=== PATIENT | male | born 1960 | race Caucasian/White ===

== ENCOUNTER 2017-03-12 08:43 | Emergency (ER) | payer MEDICARE ==
[2017-03-12] MEDS ORDERED: BABY ASPIRIN 81 MG CHEW PO ONE (09:03)
[2017-03-12] MEDS ORDERED: DUONEB 0.5-3 MG/3 ml Neb IH ONE ×2 (09:05→09:18)
[2017-03-12] MEDS ORDERED: PROTONIX 40 MG IV IV ONE ×2 (09:05→09:20)
--- NOTE | 2017-03-12 09:09 | ERPHSYRPT ---
- History of Present Illness Time Seen by Provider: 03/12/17 09:06 Source: patient Exam Limitations: no limitations Patient Subjective Stated Complaint: Pt states "I coughed really hard the other day and I popped something in my chest and it really hurts" Triage Nursing Assessment: Pt alert and oriented X 3, skin pwd. Pt ambulates with an upright steady gait, able to speak in full sentences. holds his left side when he moves or coughs Physician History: mild to mod pleuritic left chest wall pain ache since Sunday, no fever, hx smoking, hx htn and noncompliant w/ meds, mild shortness of breath, no injury Allergies/Adverse Reactions: No Known Drug Allergies Allergy (Unverified 11/05/13 19:38) Home Medications: Amitriptyline HCl 25 mg [Elavil 25 mg] 50 mg PO HS 11/05/13 [History] Omeprazole [Prilosec] 40 mg PO DAILY 11/05/13 [History] Risperidone [Risperdal] 2 mg PO BID 11/05/13 [History] Venlafaxine HCl ER 75 mg [Effexor XR 75 MG] 150 mg PO DAILY 11/05/13 [ History] Hx Tetanus, Diphtheria Vaccination/Date Given: No Hx Influenza Vaccination/Date Given: No Hx Pneumococcal Vaccination/Date Given: No Immunizations Up to Date: Yes - Review of Systems Constitutional: No Fever Eyes: No Symptoms Ears, Nose, & Throat: No Symptoms Respiratory: Cough, Dyspnea Cardiac: Chest Pain Abdominal/Gastrointestinal: No Symptoms Musculoskeletal: No Symptoms Skin: No Symptoms Neurological: No Symptoms Psychological: No Symptoms - Past Medical History Pertinent Past Medical History: Yes Neurological History: Other ENT History: No Pertinent History Respiratory History: No Pertinent History Endocrine Medical History: No Pertinent History Musculoskeletal History: Other GI Medical History: No Pertinent History Psycho-Social History: Anxiety Other Medical History: dementia,chronic back pain,meningitis - Past Surgical History Past Surgical History: Yes Gastrointestinal: Cholecystectomy, Hernia Repair - Social History Smoking Status: Current every day smoker How long have you smoked: years Exposure to second hand smoke: Yes Drug Use: none Patient Lives Alone: Yes - Nursing Vital Signs Nursing Vital Signs: Initial Vital Signs Temperature 97.4 F 03/12/17 08:50 Pulse Rate 80 03/12/17 08:50 Respiratory Rate 20 03/12/17 08:50 Blood Pressure 130/104 03/12/17 08:50 O2 Sat by Pulse Oximetry 96 03/12/17 08:50 Pain Scale Pain Intensity 2 - Physical Exam General Appearance: no apparent distress Eye Exam: PERRL/EOMI Ears, Nose, Throat Exam: moist mucous membranes Neck Exam: normal inspection Respiratory Exam: lungs clear, other (tender left chest wall), No respiratory distress Cardiovascular Exam: regular rate/rhythm Gastrointestinal/Abdomen Exam: soft, No tenderness Extremity Exam: normal inspection Neurologic Exam: alert, oriented x 3, cooperative Skin Exam: normal color, warm, dry SpO2 Interpretation: normal SpO2: 96 Oxygen Delivery: Room Air - Course Nursing assessment & vital signs reviewed: Yes EKG Interpreted by Me: Other (nsr 76, new rbbb, no stemi) - Radiology Exams Chest X-ray Interpretation: Discussed w/ radiologist, No Fracture, No Pneumonia, No Pneumothorax Ordered Tests: Active Orders 24 hr Category Date Time Status Rental Sales Representative STAT Care 03/12/17 09:03 Active EKG-ER Only STAT Care 03/12/17 09:03 Active IV Insertion STAT Care 03/12/17 09:03 Active Pulse Oximetry (ED) STAT Care 03/12/17 09:03 Active CHEST 2 VIEWS (PA AND LAT) Stat Exams 03/12/17 09:03 Completed CBC W DIFF Stat Lab 03/12/17 09:25 Completed CK-Creatinine Phosphokinase Stat Lab 03/12/17 09:25 Completed CMP Stat Lab 03/12/17 09:25 Completed D-DIMER QUANTITATION Stat Lab 03/12/17 09:25 Completed TROPONIN Q3H Lab 03/12/17 09:25 Completed TROPONIN Q3H Lab 03/12/17 12:15 Ordered TROPONIN Q3H Lab 03/12/17 15:15 Ordered TROPONIN Q3H Lab 03/12/17 18:15 Ordered TROPONIN Q3H Lab 03/12/17 21:15 Ordered Respiratory Nebulizer STAT RT 03/12/17 09:06 Completed Medication Summary Discontinued Medications Generic Name Dose Route Start Last Admin Trade Name Freq PRN Reason Stop Dose Admin Albuterol/Ipratropium 3 ml 03/12/17 09:05 03/12/17 09:20 Duoneb 0.5-3 Mg/3 Ml Neb IH 03/12/17 09:06 3 ml STAT ONE Administration Albuterol/Ipratropium Confirm 03/12/17 09:18 Duoneb 0.5-3 Mg/3 Ml Neb Administered 03/12/17 09:19 Dose 3 ml IH .STK-MED ONE Aspirin 324 mg 03/12/17 09:03 03/12/17 09:30 Baby Aspirin 81 Mg Chew PO 03/12/17 09:04 324 mg STAT ONE Administration Aspirin Confirm 03/12/17 09:20 Baby Aspirin 81 Mg Chew Administered 03/12/17 09:21 Dose 324 mg .ROUTE .STK-MED ONE Hydromorphone HCl 1 mg 03/12/17 09:31 03/12/17 09:37 Hydromorphone 1 Mg/Ml Ampule IV 03/12/17 09:32 1 mg STAT ONE Administration Hydromorphone HCl Confirm 03/12/17 09:35 Hydromorphone 1 Mg/Ml Ampule Administered 03/12/17 09:36 Dose 1 mg .ROUTE .STK-MED ONE Pantoprazole Sodium 40 mg 03/12/17 09:05 03/12/17 09:30 Protonix 40 Mg Iv IV 03/12/17 09:06 40 mg STAT ONE Administration Pantoprazole Sodium Confirm 03/12/17 09:20 Protonix 40 Mg Iv Administered 03/12/17 09:21 Dose 40 mg IV .STK-MED ONE Lab/Rad Data: Laboratory Result Diagrams 03/12/17 09:25 03/12/17 09:25 Laboratory Results 03/12/17 03/12/17 03/12/17 Range/Units 09:25 09:25 09:25 WBC (4.0-10.5) K/mm3 RBC (4.1-5.6) M/mm3 Hgb (12.5-18.0) gm/dl Hct (42-50) % MCV (78-100) fl MCH (26-32) pg MCHC (32-36) g/dl RDW (11.5-14.0) % Plt Count (150-450) K/mm3 MPV (6-9.5) fl Gran % (36.0-66.0) % Lymphocytes % (24.0-44.0) % Monocytes % (0.0-12.0) % Eosinophils % (0.00-5.0) % Basophils % (0.0-0.4) % Basophils # (0-0.4) D-Dimer < 204.26 (0-500) ng/mL Sodium 137 (136-145) mEq/L Potassium 4.2 (3.5-5.1) mEq/L Chloride 99 (98-107) mEq/L Carbon Dioxide 26.2 (21-32) mEq/L Anion Gap 15.8 H (5-15) MEQ/L BUN 22 H (9-20) mg/dL Creatinine 1.37 H (0.55-1.30) mg/dl Estimated GFR 57 ML/MIN Glucose 107 (70-110) MG/DL Calcium 9.9 (8.5-10.1) mg/dL Total Bilirubin 0.50 (0.2-1.0) mg/dL AST 23 (15-37) U/L ALT 29 (12-78) U/L Alkaline Phosphatase 69 (46-116) U/L Creatine Kinase 142 (39-308) U/L Troponin I < 0.017 (0.000-0.056) ng/ml Serum Total Protein 8.2 (6.4-8.2) gm/dL Albumin 4.1 (3.4-5.0) g/dL 03/12/17 Range/Units 09:25 WBC 7.8 (4.0-10.5) K/mm3 RBC 4.74 (4.1-5.6) M/mm3 Hgb 14.5 (12.5-18.0) gm/dl Hct 42.4 (42-50) % MCV 89.5 (78-100) fl MCH 30.6 (26-32) pg MCHC 34.2 (32-36) g/dl RDW 12.9 (11.5-14.0) % Plt Count 205 (150-450) K/mm3 MPV 10.6 H (6-9.5) fl Gran % 75.0 H (36.0-66.0) % Lymphocytes % 14.9 L (24.0-44.0) % Monocytes % 8.0 (0.0-12.0) % Eosinophils % 1.7 (0.00-5.0) % Basophils % 0.4 (0.0-0.4) % Basophils # 0.03 (0-0.4) D-Dimer (0-500) ng/mL Sodium (136-145) mEq/L Potassium (3.5-5.1) mEq/L Chloride (98-107) mEq/L Carbon Dioxide (21-32) mEq/L Anion Gap (5-15) MEQ/L BUN (9-20) mg/dL Creatinine (0.55-1.30) mg/dl Estimated GFR ML/MIN Glucose (70-110) MG/DL Calcium (8.5-10.1) mg/dL Total Bilirubin (0.2-1.0) mg/dL AST (15-37) U/L ALT (12-78) U/L Alkaline Phosphatase (46-116) U/L Creatine Kinase (39-308) U/L Troponin I (0.000-0.056) ng/ml Serum Total Protein (6.4-8.2) gm/dL Albumin (3.4-5.0) g/dL - Progress Progress: improved Air Movement: good Progress Note: 03/12/17 10:43 pt improved norco warnings given return if worse Discussed with : Other (your Dr Graham) Will see patient in: office Counseled pt/family regarding: lab results, diagnosis, need for follow-up, rad results - Departure Time of Disposition: 10:44 Departure Disposition: Home Clinical Impression: Bronchitis Condition: Stable Critical Care Time: No Referrals: ERICA GRAHAM [Primary Care Provider] - Instructions: Rib Fracture Additional Instructions: zpak, medrol, proventil inhaler, norco return if worse see your doctor
[2017-03-12] MEDS ORDERED: BABY ASPIRIN 81 MG CHEW ONE (09:20)
--- NOTE | 2017-03-12 09:30 | XRAY ---
Indication: Left sided chest pain. Comparison: December 31, 2013. PA/lateral chest remains hyperinflated with minimal lingular fibrosis/scarring. No infiltrate, consolidation, or large effusion. Heart is not enlarged. Bony thorax intact. Impression: Stable nonacute hyperinflated chest.
[2017-03-12] MEDS ORDERED: Hydromorphone 1 mg/ml Ampule IV ONE (09:31)
[2017-03-12 09:32] LABS: BASOPHIL % 0.4 % (0.0-0.4); Eosinophil % 1.7 % (0.00-5.0); Lymphocytes % 14.9 % (24.0-44.0); Mean Cell Volume 89.5 fl (78-100); Mean Corpuscular Hemoglobin 30.6 pg (26-32); Mean Platelet Volume 10.6 fl (6-9.5); Platelet Count 205 K/mm3 (150-450); Red Blood Count 4.74 M/mm3 (4.1-5.6); Red Cell Distribution Width 12.9 % (11.5-14.0); White Blood Count 7.8 K/mm3 (4.0-10.5)
[2017-03-12] MEDS ORDERED: Hydromorphone 1 mg/ml Ampule ONE (09:35)
[2017-03-12 10:12] LABS: ALBUMIN 4.1 g/dL (3.4-5.0); ANION GAP 15.8 MEQ/L (5-15); BILIRUBIN,TOTAL 0.5 mg/dL (0.2-1.0); Carbon Dioxide 26.2 mEq/L (21-32); Potassium 4.2 mEq/L (3.5-5.1); Total Protein 8.2 gm/dL (6.4-8.2)
[2017-03-12 11:05] VITALS: BP 132/86; PULSE 72; O2SAT 98
== END 2017-03-12 11:00 | disposition home or self-care (01) ==
LOC: ED 08:43
DX: J40 Bronchitis, not specified as acute or chronic (principal); R07.89 Other chest pain; I10 Essential (primary) hypertension; Z79.899 Other long term (current) drug therapy
CPT/HCPCS: 36000; 36415; 71020; 80053; 82550; 84484; 85025; 85379; 93005; 93041; 94640; 96374; 96375; 99283; 99284; J1170; A9270-GY

== ENCOUNTER 2017-08-06 11:20 | Emergency (ER) | payer MEDICARE ==
--- NOTE | 2017-08-06 12:10 | ERPHSYRPT ---
- History of Present Illness Time Seen by Provider: 08/06/17 12:04 Source: patient Exam Limitations: no limitations Patient Subjective Stated Complaint: pt here for pain to left hand after getting stuck in hand with 2 aicha nails yesterday Triage Nursing Assessment: pt has swelling and redenss to left hand with two scabed over puncture wounds to palm of hand Physician History: The patient is a 57-year-old right-handed male complaining that he punctured his palm of his left hand with 2 nails at work yesterday. He was tearing down some rafters when a board fell and he instinctively put his left hand up. The board had nails in it and struck him on the palm of his left hand. The nail is did not go completely through his hand. He continued to work yesterday. This morning his left hand was swollen and painful. He tried to work today but is unable to grab objects with his left hand because of the pain. He denies fever or chills. His last tetanus vaccination was more than 10 years ago. He denies numbness. His past medical history is significant for hypertension but he quit taking his medicine 2 weeks ago. Occurred: yesterday Method of Injury: other (puncture wound) Quality: aching Severity of Pain-Max: moderate Severity of Pain-Current: moderate Extremities Pain Location: hand: left Modifying Factors: Improves With: nothing Associated Symptoms: none Allergies/Adverse Reactions: No Known Drug Allergies Allergy (Unverified 11/05/13 19:38) Hx Tetanus, Diphtheria Vaccination/Date Given: No Hx Influenza Vaccination/Date Given: No Hx Pneumococcal Vaccination/Date Given: No Immunizations Up to Date: Yes - Review of Systems Constitutional: No Fever, No Chills Eyes: No Symptoms Ears, Nose, & Throat: No Symptoms Respiratory: No Cough, No Dyspnea Cardiac: No Chest Pain, No Edema, No Syncope Abdominal/Gastrointestinal: No Abdominal Pain, No Nausea, No Vomiting, No Diarrhea Genitourinary Symptoms: No Dysuria Musculoskeletal: Injury Skin: Cellulitis Neurological: No Dizziness, No Focal Weakness, No Sensory Changes Psychological: No Symptoms Endocrine: No Symptoms Hematologic/Lymphatic: No Symptoms Immunological/Allergic: No Symptoms All Other Systems: Reviewed and Negative - Past Medical History Pertinent Past Medical History: No Neurological History: Other ENT History: No Pertinent History Respiratory History: No Pertinent History Endocrine Medical History: No Pertinent History Musculoskeletal History: Other GI Medical History: No Pertinent History Psycho-Social History: Anxiety Other Medical History: dementia,chronic back pain,meningitis - Past Surgical History Past Surgical History: Yes Gastrointestinal: Cholecystectomy - Social History Smoking Status: Current every day smoker How long have you smoked: years Exposure to second hand smoke: Yes Drug Use: none Patient Lives Alone: No - Nursing Vital Signs Nursing Vital Signs: Initial Vital Signs Temperature 98.7 F 08/06/17 11:28 Pulse Rate 64 08/06/17 11:28 Respiratory Rate 20 08/06/17 11:28 Blood Pressure 180/100 08/06/17 11:28 O2 Sat by Pulse Oximetry 97 08/06/17 11:28 Pain Scale Pain Intensity 2 - Physical Exam General Appearance: mild distress Eyes, Ears, Nose, Throat Exam: moist mucous membranes Neck Exam: non-tender, supple Cardiovascular/Respiratory Exam: chest non-tender, normal breath sounds, regular rate/rhythm, no respiratory distress Abdominal Exam: non-tender, No guarding Back Exam: normal inspection, No vertebral tenderness Shoulder Exam: normal inspection Elbow/Forearm Exam: normal inspection Wrist Exam: normal inspection Hand Exam: infection, laceration (2 puncture wounds to palm), limited ROM, soft tissue tenderness, swelling Neuro/Tendon Exam: normal sensation, normal motor functions Mental Status Exam: alert, oriented x 3, cooperative Skin Exam: normal color, warm, dry SpO2 Interpretation: normal SpO2: 97 Oxygen Delivery: Room Air - Radiology Exams Left Hand X-ray Interpretation: Interpreted by me, Negative Ordered Tests: Active Orders 24 hr Category Date Time Status HAND (MINIMUM 3 VIEWS) Stat Exams 08/06/17 12:25 Taken Medication Summary Discontinued Medications Generic Name Dose Route Start Last Admin Trade Name Freq PRN Reason Stop Dose Admin Diphtheria/Tetanus/Acell Pertussis 0.5 ml 08/06/17 12:14 08/06/17 12:23 Adacel Vial IM 08/06/17 12:15 0.5 ml .ONCE ONE Administration Diphtheria/Tetanus/Acell Pertussis Confirm 08/06/17 12:17 Adacel Vial Administered 08/06/17 12:18 Dose 0.5 ml IM .STK-MED ONE - Progress Progress: unchanged Counseled pt/family regarding: need for follow-up, rad results - Departure Time of Disposition: 13:17 Departure Disposition: Home Clinical Impression: Cellulitis Condition: Stable Critical Care Time: No Referrals: ERICA SUERO [Primary Care Provider] - Additional Instructions: You have an infection in your left hand as result of getting punctured by nails at work. You were given a tetanus vaccination and Rocephin 1 g IM in the ER. Take Augmentin 875 to times a day for 10 days. Follow-up tomorrow with your regular doctor if your condition has not improved. Prescriptions: Amoxicillin/Potassium Clav [Augmentin 875-125 Tablet] 875 mg PO BID #20 tablet
[2017-08-06] MEDS ORDERED: Adacel Vial IM ONE ×2 (12:14→12:17)
[2017-08-06] MEDS ORDERED: Rocephin 1000 MG INJ IM ONE (13:15)
[2017-08-06 13:19] VITALS: O2SAT 97
[2017-08-06] MEDS ORDERED: XYLOCAINE 1% HCL 20 ML MDV ONE (13:22)
[2017-08-06] MEDS ORDERED: Rocephin 1000 MG INJ ONE (13:22)
[2017-08-06 13:53] VITALS: BP 157/92; PULSE 64
--- NOTE | 2017-08-06 14:03 | XRAY ---
Indication: Puncture wound. Comparison: None 3 views of left hand demonstrates mild 1st metacarpal multangular degenerative changes and small 1st metacarpal head spur. No other bony, articular, or soft tissue abnormalities.
== END 2017-08-06 13:53 | disposition home or self-care (01) ==
LOC: ED 11:20
DX: L03.114 Cellulitis of left upper limb (principal); W45.0XXA Nail entering through skin, initial encounter; Y93.H3 Activity, building and construction
CPT/HCPCS: 73130; 90471; 90715; 96372; 99283; 99284; J0696

== ENCOUNTER 2017-10-03 18:50 | Emergency (ER) | payer MEDICARE ==
[2017-10-03 19:05] VITALS: BP 135/77; PULSE 85; O2SAT 98
[2017-10-03] MEDS ORDERED: TORAdol 30 mg Injection IM ONE (19:19)
[2017-10-03] MEDS ORDERED: TORAdol 30 mg Injection ONE (19:21)
--- NOTE | 2017-10-03 19:25 | ERPHSYRPT ---
- History of Present Illness Time Seen by Provider: 10/03/17 19:15 Source: patient Exam Limitations: no limitations Patient Subjective Stated Complaint: Reaching for something yesterday with his right arm/hand and his shoulder popped. Rates pain 12/17 Triage Nursing Assessment: Pt A&O x3, vitals wnl, pulses normal, no difficulties with strength, reached for something yesterday with right hand and heard something "pop" in his shoulder, shoulder appears to have a lump/bone sticking up at top of shoulder Physician History: 57-year-old white male arrives with complaint of pain in his right superior shoulder symptoms since yesterday. Patient states he was reaching to put something up and cabinet when he felt pain in his right shoulder he has pain in the superior right shoulder worse with movement. Past medical history includes anxiety, chronic back pain, meningitis in the past. Past surgical history includes cholecystectomy. Social history includes alcohol use weekly Occurred: yesterday Method of Injury: other (reaching to put something on a shelf yesterday felt pain in right shoulder) Severity of Pain-Max: moderate Severity of Pain-Current: moderate Extremities Pain Location: shoulder: right Modifying Factors: Improves With: nothing Associated Symptoms: other (pain right shoulder), No back pain, No chills, No chest discomfort, No chest pain, No dyspnea, No fever, No jaw pain, No nausea, No neck pain, No sweating, No short of breath, No vomiting Allergies/Adverse Reactions: No Known Drug Allergies Allergy (Verified 10/03/17 19:03) Hx Tetanus, Diphtheria Vaccination/Date Given: No Hx Influenza Vaccination/Date Given: No Hx Pneumococcal Vaccination/Date Given: No - Review of Systems Constitutional: No Fever, No Chills Eyes: No Symptoms Ears, Nose, & Throat: No Symptoms Respiratory: No Cough, No Dyspnea Cardiac: No Chest Pain, No Edema, No Syncope Abdominal/Gastrointestinal: No Abdominal Pain, No Nausea, No Vomiting, No Diarrhea Genitourinary Symptoms: No Dysuria Musculoskeletal: Other (right shoulder pain) Skin: No Rash Neurological: No Dizziness, No Focal Weakness, No Sensory Changes Psychological: No Symptoms Endocrine: No Symptoms All Other Systems: Reviewed and Negative - Past Medical History Pertinent Past Medical History: No Neurological History: Other ENT History: No Pertinent History Respiratory History: No Pertinent History Endocrine Medical History: No Pertinent History Musculoskeletal History: Other GI Medical History: No Pertinent History Psycho-Social History: Anxiety Other Medical History: dementia,chronic back pain,meningitis - Past Surgical History Past Surgical History: Yes Gastrointestinal: Cholecystectomy - Social History Smoking Status: Current every day smoker How long have you smoked: years Exposure to second hand smoke: Yes Drug Use: none Patient Lives Alone: No - Nursing Vital Signs Nursing Vital Signs: Initial Vital Signs Temperature 98.8 F 10/03/17 18:56 Pulse Rate 85 10/03/17 18:56 Blood Pressure 135/77 10/03/17 18:56 O2 Sat by Pulse Oximetry 98 10/03/17 18:56 Pain Scale Pain Intensity 9 - Physical Exam General Appearance: mild distress Eyes, Ears, Nose, Throat Exam: moist mucous membranes Neck Exam: non-tender, supple Cardiovascular/Respiratory Exam: chest non-tender, normal breath sounds, regular rate/rhythm, no respiratory distress Abdominal Exam: non-tender, No guarding Back Exam: normal inspection, No vertebral tenderness Shoulder Exam: No normal inspection (right shoulder full range of motion , prominence to the AC joint superiorly, mild tenderness with palpation in this area, full range of motion right elbow wrist hand, fingers, radial, ulnar pulses are intact 2/4, good capillary refill all fingers, sensation intact all fingers.) Elbow/Forearm Exam: normal inspection, non-tender, no evidence of injury, normal ROM Wrist Exam: normal inspection, non-tender, no evidence of injury, normal ROM Hand Exam: normal inspection, non-tender, no evidence of injury, normal ROM Neuro/Tendon Exam: normal sensation, normal motor functions Mental Status Exam: alert, oriented x 3, cooperative Skin Exam: normal color, warm, dry SpO2 Interpretation: normal (98%) SpO2: 98 Oxygen Delivery: Room Air - Course Nursing assessment & vital signs reviewed: Yes - Radiology Exams Right Shoulder X-ray Interpretation: Interpreted by me, Other (x-ray right shoulder: Small area of hyper lucency at distal end of right clavicle possible avulsion fracture age undetermined, also area of increased calcification inferior to distal in the right clavicle, widened AC joint space. as compared to November 05, 2013.tthe portion inferior to to the right clavicle ccould represent partial avulsion from acromion ) Ordered Tests: Active Orders 24 hr Category Date Time Status SHOULDER Stat Exams 10/03/17 19:18 Taken Medication Summary Discontinued Medications Generic Name Dose Route Start Last Admin Trade Name Shelley PRN Reason Stop Dose Admin Ketorolac Tromethamine 60 mg 10/03/17 19:19 10/03/17 19:23 Toradol 30 Mg Injection IM 10/03/17 19:20 60 mg STAT ONE Administration Ketorolac Tromethamine Confirm 10/03/17 19:21 Toradol 30 Mg Injection Administered 10/03/17 19:22 Dose 60 mg .ROUTE .STVersartis-MED ONE - Progress Progress: improved Progress Note: 10/03/17 19:28 57-year-old white male with history of chronic back pain anxiety who states she had had meningitis in the past. Arrives with complaint of pain in his right shoulder since yesterday. Patient is moving his right shoulder he does have prominence of the right AC joint, mild tenderness with palpation in the area. Old chart is reviewed patient had been seen in 2013 he had an AC separation at that time. Toradol injection 60 mg IM has been ordered. Will order x-ray right shoulder. 10/03/17 19:46 X-ray of the right shoulder shows widened AC space. There is a small area of hyper lucency at the distal end of the right clavicle which could represent an avulsion fracture age undetermined also there is an area of increased calcification inferior to the distal end of the right clavicle which could represent an avulsion fracture of the clavicle age undetermined. Patient was seen in October 2013 secondary to shoulder pain at that time before meals joint appear to be widened but there was no fractures on x-ray. Patient has minimal edema overlying the area that appears to be more prominent. Question chronic injury with acute small avulsion fracture of the proximal clavicle. Will go ahead and place sling on the patient's right arm have him ice the area patient was given Toradol 60 mg IM. Will have patient take Naprosyn 500 mg twice a day with food as needed for pain. Patient to follow-up with either Dr. Graham, Dr. Mccarthy, or [facility] orthopedics. 10/03/17 19:53 - Departure Time of Disposition: 19:50 Departure Disposition: Home Clinical Impression: avulsion fracture proximal clavicle, possible acromion fx age undetermined Right shoulder pain Qualifiers: Chronicity: acute Qualified Code(s): M25.511 - Pain in right shoulder Condition: Fair Critical Care Time: No Referrals: ERICA GRAHAM [Primary Care Provider] - Additional Instructions: Return home. Use sling right arm. 48-72 hours longer if pain persists. Follow-up with Dr. Graham, Dr. Mccarthy, or [facility] orthopedics. Call tomorrow and arrange appointment. Naprosyn 500 mg orally twice a day with food as needed for pain #20. Return for acute distress or for severe symptoms. No heavy lifting or strenuous use of right arm. Prescriptions: Naproxen 500 mg [Naprosyn 500 MG] 500 mg PO BID #20 tablet
--- NOTE | 2017-10-04 08:43 | XRAY ---
Indication: Right shoulder pain. No known injury. Comparison: November 05, 2013. 3 views of the right shoulder demonstrates new displaced acute comminuted fracture involving the tip of the distal clavicle with AC separation and inferior depression of the acromion. No other bony, articular, or soft tissue abnormalities.
== END 2017-10-03 20:09 | disposition home or self-care (01) ==
LOC: ED 18:50
DX: S42.031A Displaced fracture of lateral end of right clavicle, initial encounter for closed fracture (principal); X50.0XXA Overexertion from strenuous movement or load, initial encounter; M25.511 Pain in right shoulder; M54.9 Dorsalgia, unspecified; G89.29 Other chronic pain; F45.42 Pain disorder with related psychological factors; F41.9 Anxiety disorder, unspecified; Z86.61 Personal history of infections of the central nervous system
CPT/HCPCS: 73030; 96372; 99284; J1885

== ENCOUNTER 2021-03-14 10:16 | Day surgery (SDC) | payer MEDICARE ==
--- NOTE | 2021-03-14 08:54 | HP ---
DATE OF SURGERY: 03/14/2021 HISTORY OF PRESENT ILLNESS: The patient is a 61-year-old having gross bloody stools. Last colonoscopy ten years or so ago. He had a polyp then. There was a question whether he had a positive fecal immunochemical test (FIT) in the past. PAST MEDICAL HISTORY: Hypertension, anxiety, osteoporosis, hepatitis C. PAST SURGICAL HISTORY: Cholecystectomy. Shoulder surgery. Hernia repair by Dr. June in the past. Back problems. MEDICATIONS: Flomax, blood pressure medicine, anxiety medicine. ALLERGIES: NKDA. FAMILY HISTORY: Negative in regards to this problem. SOCIAL HISTORY: One pack per day smoker. Denies alcohol abuse. REVIEW OF SYSTEMS: Fourteen systems reviewed. No chest pain or palpitations. Other systems negative or noncontributory as above and per preadmission questionnaire. PHYSICAL EXAMINATION: GENERAL: No acute distress. HEENT: Sclerae nonicteric. NECK: No JVD. CHEST: Clear to auscultation. CVS: Regular rate and rhythm. ABDOMEN: Soft. No peritoneal signs. EXTREMITIES: No significant edema. NEURO: Alert, oriented, moving extremities symmetrically. RECTAL: Deferred timed to endoscopy exam. PSYCH: Appropriate mood and affect. IMPRESSION: Need for follow up screening colonoscopy. Risks and benefits explained in detail including but not limited to bleeding or infection, risk of bowel injury or perforation possibly requiring open procedure, risk of missed or nondiagnosis or incomplete exam possibly requiring barium enema, other studies or procedures, general risk of anesthesia or sedation, risk of bowel prep, but not limited to, consent obtained. Will proceed with outpatient colonoscopy under MAC anesthesia. There was a question whether he had a positive fecal immunochemical test (FIT) in the past. He is in need of follow up screening colonoscopy, will proceed as an outpatient.
[2021-03-14] MEDS ORDERED: Lactated Ringers 1,000 ML IV ONE ×2 (10:55→13:22)
[2021-03-14] MEDS ORDERED: Lactated Ringers 1,000 ML IV SCH (11:00)
[2021-03-14] MEDS ORDERED: DIPRIVAN 200 MG/20 ML IV ONE ×2 (12:59→13:10)
[2021-03-14 14:41] VITALS: BP 132/82; PULSE 67; O2SAT 97
--- NOTE | 2021-03-15 10:02 | OP ---
SURGERY DATE/TIME: 03/14/2021 1303 PREOPERATIVE DIAGNOSIS: Need for screening colonoscopy, prior history of polyps. POSTOPERATIVE DIAGNOSES: 1) ASA Class III. 2) Colon polyps. 3) Fair but limited bowel prep. 4) Diverticulosis. 5) Withdrawal time approximately 9 minutes. 6) Photo documented appendiceal orifice and ileocecal valve area. PROCEDURES: 1) Colonoscopy to cecum. 2) Hot biopsy followed by removal hot snare polypectomy of transverse colon polyp. 3) Hot snare polypectomy small rectal polyp. SURGEON: Dr. Moy Lozano. SECOND MATE: Zack Jackson, Medical Student III. ANESTHESIA: MAC. ESTIMATED BLOOD LOSS: Minimal. INDICATIONS: As noted above. Risks and benefits explained in detail but not limited to and consent obtained. DESCRIPTION OF PROCEDURE AND FINDINGS: The patient is taken to the endoscopy room. MAC anesthesia induced. After official time out and no disagreement with planned procedure, digital rectal exam did not reveal any rectal masses. Video colonoscope inserted and passed up through the tortuous sigmoid, descending, transverse and ascending colon. With the external pressure the scope was able to be passed around to the cecum. Appendiceal orifice and valve well visualized. Prep is on the fair side a little limited with liquidy semisolid stool limiting the exam for small lesions this is suctioned irrigated out as clear as possible. The scope is slowly and carefully withdrawn over the next 9 minutes. Stopping in the transverse colon. There is a 3.5 mm polyp or so, difficult to see with the amount of liquidy stool. It was suctioned irrigated as clear as possible despite the patient's peristalsis and moving target. It was finally able to be biopsied with hot biopsy forceps and was able to get a snare on it and appeared to be removed with the hot snare completely. Good hemostasis appeared to be noted. The staff said it was retrieved. The scope was then carefully pulled through the left colon and had a few small diverticula. Back in the rectum, there was another 3 to 3.5 mm polyp removed with hot snare polypectomy this appeared to be adenomatous in nature. It was carefully removed with hot snare polypectomy with brief bursts of cautery. Good hemostasis noted. Otherwise there were no signs of any other large polyps, masses or obstructing lesions. The patient tolerated the procedure well. He did not have any family to discuss the findings with out in the waiting area. I will see him back in the office next week.
== END 2021-03-14 14:30 | disposition home or self-care (01) ==
LOC: SDC 10:16
PROVIDERS: ATTEND Surgery
DX: Z12.11 Encounter for screening for malignant neoplasm of colon (principal); Z09 Encounter for follow-up examination after completed treatment for conditions other than malignant neoplasm; Z85.038 Personal history of other malignant neoplasm of large intestine; K57.30 Diverticulosis of large intestine without perforation or abscess without bleeding; Z79.899 Other long term (current) drug therapy; D12.3 Benign neoplasm of transverse colon; D12.8 Benign neoplasm of rectum
CPT/HCPCS: 88305; J2704

== ENCOUNTER 2021-04-22 23:38 | Emergency (ER) | payer MEDICARE ==
[2021-04-23] MEDS ORDERED: XYLOCAINE 1% HCL 20 ML MDV ONE (00:12)
--- NOTE | 2021-04-23 00:12 | ERPHSYRPT ---
- History of Present Illness Time Seen by Provider: 04/23/21 00:11 Source: patient Exam Limitations: no limitations Physician History: UTI symptoms for a day or two. Some dysuria, right testicle area with pain and swelling. No d/c. He had a recent cystoscopy by urologist for ? bladder cancer. Timing/Duration: today Activites at Onset: none Quality: aching, pressure Onset Location: right testicle Pain Radiation: none Severity of Pain-Max: moderate Severity of Pain-Current: moderate Modifying Factors: Improves With: nothing Associated Symptoms: dysuria, No fever Prior abdominal problems: other (recent cystoscopy) Sexual intercourse history: non-contributory Allergies/Adverse Reactions: No Known Drug Allergies Allergy (Verified 03/10/21 15:49) Home Medications: Amlodipine Besylate 5 mg [Norvasc 5 mg] 5 mg PO DAILY 03/11/21 [History] Donepezil HCl 10 mg [Aricept 10 MG] 10 mg PO DAILY 03/11/21 [History] Tamsulosin HCl 0.4 mg [Flomax 0.4 MG] 0.4 mg PO DAILY 03/11/21 [History] Venlafaxine HCl [Venlafaxine HCl ER] 150 mg PO DAILY 03/11/21 [History] Hx Tetanus, Diphtheria Vaccination/Date Given: No Hx Influenza Vaccination/Date Given: No Hx Pneumococcal Vaccination/Date Given: No - Past Medical History Pertinent Past Medical History: Yes Neurological History: Dementia ENT History: No Pertinent History Cardiac History: Hypertension Respiratory History: COPD, Other Endocrine Medical History: No Pertinent History Musculoskeletal History: Osteoarthritis GI Medical History: No Pertinent History History: Bladder Cancer (not certain), Other Psycho-Social History: Anxiety Male Reproductive Disorders: Other Other Medical History: smoker, he has an inhaler and breathing machine. daughter states there is a tumor in his bladder pt states they are unsure if he has a tumor in his bladder. blockage in the bladder. pt reports he was treated for hepatitis years ago type unknown - Past Surgical History Past Surgical History: Yes Neuro Surgical History: No Pertinent History Cardiac: No Pertinent History Respiratory: No Pertinent History Gastrointestinal: Cholecystectomy, Hernia Repair Genitourinary: No Pertinent History Musculoskeletal: Other Male Surgical History: No Pertinent History Other Surgical History: shoulder surgery - Social History Smoking Status: Current every day smoker How long have you smoked: 30 years Exposure to second hand smoke: No Drug Use: none Patient Lives Alone: No Significant Family History: no pertinent family hx - Review of Systems Constitutional: No Symptoms Eyes: No Symptoms Ears, Nose, & Throat: No Symptoms Respiratory: No Symptoms Cardiac: No Symptoms Abdominal/Gastrointestinal: No Symptoms Genitourinary Symptoms: Dysuria, Testicle Pain Musculoskeletal: No Symptoms Skin: No Symptoms Neurological: No Symptoms Psychological: No Symptoms Endocrine: No Symptoms Hematologic/Lymphatic: No Symptoms Immunological/Allergic: No Symptoms All Other Systems: Reviewed and Negative - Nursing Vital Signs Nursing Vital Signs: Initial Vital Signs Temperature 98.3 F 04/23/21 00:01 Pulse Rate 70 04/23/21 00:01 Respiratory Rate 15 04/23/21 00:01 Blood Pressure 106/65 04/23/21 00:01 O2 Sat by Pulse Oximetry 98 04/23/21 00:01 Pain Scale Pain Intensity 8 - Physical Exam General Appearance: mild distress Eye Exam: PERRL/EOMI, EOM palsy/anisocoria Neck Exam: normal inspection Respiratory Exam: normal breath sounds Cardiovascular Exam: regular rate/rhythm Gastrointestinal/Abdomen Exam: soft, normal bowel sounds Rectal Exam: deferred Male Genital Exam: epididymal tenderness (right), testicular tenderness (R) (generalized TTP, not c/w torsion) Back Exam: normal inspection Extremity Exam: normal inspection Neurologic Exam: alert, oriented x 3 Skin Exam: normal color - Course Nursing assessment & vital signs reviewed: Yes Ordered Tests: Active Orders 24 hr Category Date Time Status CULTURE,URINE Stat Lab 04/23/21 00:44 Received UA W/RFX UR CULTURE Stat Lab 04/23/21 00:44 Completed Medication Summary Discontinued Medications Generic Name Dose Route Start Last Admin Trade Name Shelley PRN Reason Stop Dose Admin Hydrocodone Bitart/Acetaminophen 1 tablet 04/23/21 00:28 04/23/21 00:36 Hydrocodone/Acetamin 10-325 Mg Tablet PO 04/23/21 00:29 1 tablet ONCE ONE Administration Ceftriaxone Sodium 1,000 mg 04/23/21 00:24 04/23/21 00:36 Ceftriaxone Sodium 1000 Mg Inj Vial IM 04/23/21 00:25 1,000 mg STAT ONE Administration Ceftriaxone Sodium Confirm 04/23/21 00:31 Ceftriaxone Sodium 1000 Mg Inj Vial Administered 04/23/21 00:32 Dose 1,000 mg .ROUTE .STK-MED ONE Lidocaine HCl Confirm 04/23/21 00:12 Lidocaine Hcl 1% 20 Ml Mdv 20 Ml Ml Administered 04/23/21 00:13 Dose 5 ml .ROUTE .STK-MED ONE Lab/Rad Data: Laboratory Results 04/23/21 Range/Units 00:44 Urine Color HUMZA (YELLOW) Urine Appearance CLOUDY (CLEAR) Urine pH 5.0 (5-6) Ur Specific [place] 1.024 (1.005-1.025) Urine Protein 100 (Negative) Urine Ketones TRACE (NEGATIVE) Urine Blood SMALL (0-5) Tarik/ul Urine Nitrite NEGATIVE (NEGATIVE) Urine Bilirubin NEGATIVE (NEGATIVE) Urine Urobilinogen 2 (0-1) mg/dL Ur Leukocyte Esterase LARGE (NEGATIVE) Urine WBC (Auto) >100 (0-5) /HPF Urine RBC (Auto) 26-50 (0-2) /HPF U Hyaline Cast (Auto) 26-50 (0-2) /LPF U Epithel Cells (Auto) NONE (FEW) /HPF Urine Bacteria (Auto) FEW (NEGATIVE) /HPF Calcium Oxalate Crystal 3-5 (NEGATIVE) /HPF Urine Mucus (Auto) SLIGHT (NEGATIVE) /HPF Urine Culture Reflexed YES (NO) Urine Glucose NEGATIVE (NEGATIVE) mg/dL - Progress Progress: improved Progress Note: 04/23/21 05:49 UTI with extension into right testicular area. No abscess. Rx abx and see urologist SUSANNE. Counseled pt/family regarding: lab results, diagnosis, need for follow-up - Departure Departure Disposition: Home Clinical Impression: Orchitis and epididymitis Condition: Stable Critical Care Time: No Referrals: STARR FELICIANO [Primary Care Provider] - Follow up/PCP as directed Instructions: Epididymitis (DC) Additional Instructions: Take the antibiotic. Drink lots of water. Call your urologist Sunday to arrange an appt. to check the infection. Prescriptions: Hydrocodone/Acetaminophen [Hydrocodone-Acetamin 5-325 mg] 1 tab PO Q6HPRN PRN 3 Days #12 tablet MDD 4 PRN Reason: Pain Levofloxacin [Levofloxacin 500 MG Tablet] 500 mg PO QAM #10 tablet
[2021-04-23] MEDS ORDERED: Rocephin 1000 MG INJ IM ONE (00:24)
[2021-04-23] MEDS ORDERED: HYDROCODONE-ACETAMIN 10-325 MG PO ONE (00:28)
[2021-04-23] MEDS ORDERED: Rocephin 1000 MG INJ ONE (00:31)
[2021-04-23 01:01] LABS: Appearance CLOUDY (CLEAR); Bacteria FEW /HPF (NEGATIVE); Bilirubin NEGATIVE (NEGATIVE); Blood SMALL Ery/ul (0-5); Glucose NEGATIVE (NEGATIVE); Hyaline Casts 26-50 /LPF (0-2); Ketones TRACE (NEGATIVE); Leukocyte Esterase LARGE (NEGATIVE); Mucus SLIGHT /HPF (NEGATIVE); Nitrite NEGATIVE (NEGATIVE); Protein,Urine Dip 100 (Negative); RBC 26-50 /HPF (0-2); Specific Gravity 1.024 (1.005-1.025); Urobilinogen 2 mg/dL (0-1); WBC >100 /HPF (0-5)
[2021-04-23 02:15] VITALS: BP 125/58; O2SAT 97
[2021-04-23 02:16] VITALS: PULSE 72
== END 2021-04-23 02:17 | disposition home or self-care (01) ==
LOC: ED 23:38
DX: N45.3 Epididymo-orchitis (principal); R30.0 Dysuria; I10 Essential (primary) hypertension; F03.90 Unspecified dementia, unspecified severity, without behavioral disturbance, psychotic disturbance, mood disturbance, and anxiety; J44.9 Chronic obstructive pulmonary disease, unspecified; Z72.0 Tobacco use; Z79.891 Long term (current) use of opiate analgesic; Z79.899 Other long term (current) drug therapy
CPT/HCPCS: 81001; 87077; 87086; 87186; 96372; 99284; J0696; A9270-GY

== ENCOUNTER 2022-03-02 16:53 | Emergency (ER) | payer MEDICARE ==
[2022-03-02] MEDS ORDERED: Sodium Chloride 0.9% 1000 ML 1,000 ML IV SCH (17:00)
[2022-03-02] MEDS ORDERED: Magnesium Sulfate 1 GM/2 ML VIAL ONE (17:05)
[2022-03-02 17:10] LABS: Absolute Neutrophil Ct (ANC) 8.59 x10^3/uL (1.4-6.9); Basophil (Absolute #) 0.03 x10^3/uL (0-0.4); Eosinophil % 0.1 % (0.00-5.0); Eosinophil (Absolute #) 0.01 x10^3/uL (0-0.5); Hematocrit 43.2 % (42-50); Hemoglobin 13.6 g/dL (12.5-18.0); Lymphocyte (Absolute #) 0.61 x10^3/uL (1.0-4.6); Lymphocytes % 6.2 % (24.0-44.0); Mean Cell Volume 94.1 fL (78-100); Mean Corpuscular Hemoglobin 29.6 pg (26-32); Mean Corpuscular Hgb Concent. 31.5 g/dL (32-36); Mean Platelet Volume 11.1 fL (7.5-11.0); Monocyte (Absolute #) 0.54 x10^3/uL (0.0-1.3); Monocytes % 5.5 % (0.0-12.0); Neutrophil % 87.6 % (36.0-66.0); Platelet Count 205 x10^3/uL (150-450); Red Blood Count 4.59 x10^6/uL (4.1-5.6); Red Cell Distribution Width 14.1 % (11.5-14.0); White Blood Count 9.8 x10^3/uL (4.0-10.5)
[2022-03-02] MEDS ORDERED: ATROPINE SULFATE 1MG SYR ABBOJECT ONE (17:14)
[2022-03-02] MEDS ORDERED: SUBLIMAZE 100 MCG/2 ML ONE ×2 (17:14→17:24)
[2022-03-02] MEDS ORDERED: Zofran 4 MG/2 ML VIAL ONE (17:14)
[2022-03-02] MEDS ORDERED: Sodium Chloride 0.9% 1000 ML 1,000 ML ONE (17:16)
[2022-03-02 17:30] VITALS: BP 94/40; PULSE 26; O2SAT 93
[2022-03-02] MEDS ORDERED: Dopamine 400 MG/D5W 250ML PREMIX 250 ML IV ONE (17:37)
[2022-03-02 17:44] LABS: ALBUMIN 4.2 g/dL (3.5-5.0); ALKALINE PHOSPHATASE 78 U/L (38-126); ANION GAP 12.5 MEQ/L (5-15); BLOOD UREA NITROGEN 24 mg/dL (9-20); CHLORIDE 103 mmol/L (98-107); CK-Creatinine Phosphokinase 76 U/L (55-170); Calcium 8.7 mg/dL (8.4-10.2); Carbon Dioxide 29 mmol/L (22-30); Creatinine 1 1.32 mg/dL (0.66-1.25); EST GLOMERULAR FILTRATION RATE 58.2 ML/MIN; Glucose 81 mg/dL (74-106); NT PRO BNP 186 pg/mL (0-900); Potassium 4.8 mmol/L (3.5-5.1); SGOT/AST 34 U/L (17-59); SGPT/ALT 27 U/L (0-50); SODIUM 139 mmol/L (137-145); TROPONIN < 0.012 ng/mL (0.000-0.034); Total Protein 7.4 g/dL (6.3-8.2)
--- NOTE | 2022-03-02 17:57 | ERPHSYRPT ---
- History of Present Illness Time Seen by Provider: 03/02/22 16:55 Source: patient, family Exam Limitations: clinical condition Patient Subjective Stated Complaint: Syncope Triage Nursing Assessment: Patient brought into ED per w/c and transferred to bed with assist of 1. Patient states he woke up around 1230 and has been "passing" out all day. Patient has two abrasions to forehead from a fall last night. Patient's girlfriend states he has been having several syncopal episodes today. Patient will state "Oh no I feel it" and his heart rate will drop. Patient denies pain or discomfort. Physician History: 62 years old male with history of hypertension, anxiety presented in the ER with chief complaint of multiple syncopal episodes. Patient reports he keeps passing out off and on since he woke up around 1230. Complaining of mild chest discomfort and it comes in a wave that goes down and he passes out and no sei zure-like activity. Patient is not confused or altered immediately afterwards. Patient reports he had similar episodes almost 2 years ago and was thoroughly worked up which was negative and got better until 2 weeks ago and since then having multiple episodes again. He fell few days ago and today prior to arrival he was sitting on a chair and passed out. He has abrasion on the forehead which he fell few days ago. Moving all 4 extremities and no focal numbness tingling or weakness. Timing/Duration: hour(s) (5), intermittent, worse Severity: moderate Associated Symptoms: chest pain, syncope, weakness Allergies/Adverse Reactions: No Known Drug Allergies Allergy (Verified 03/02/22 16:59) Home Medications: Amlodipine Besylate 5 mg [Norvasc 5 mg] 5 mg PO DAILY 03/11/21 [History] Donepezil HCl 10 mg [Aricept 10 MG] 10 mg PO DAILY 03/11/21 [History] Tamsulosin HCl 0.4 mg [Flomax 0.4 MG] 0.4 mg PO DAILY 03/11/21 [History] Venlafaxine HCl [Venlafaxine HCl ER] 150 mg PO DAILY 03/11/21 [History] Hx Tetanus, Diphtheria Vaccination/Date Given: No Hx Influenza Vaccination/Date Given: No Hx Pneumococcal Vaccination/Date Given: No Immunizations Up to Date: Yes Travel Risk - International Travel Have you traveled outside of the country in past 3 weeks: No - Coronavirus Screening Are you exhibiting any of the following symptoms?: No Close contact with a COVID-19 positive Pt in past 14-21 Days: No - Vaccine Status Have you recieved a Covid-19 vaccination: No - Review of Systems Neurological: Dizziness All Other Systems: Unable due to condition - Past Medical History Pertinent Past Medical History: Yes Neurological History: Dementia ENT History: No Pertinent History Cardiac History: Hypertension Respiratory History: COPD, Other Endocrine Medical History: No Pertinent History Musculoskeletal History: Osteoarthritis GI Medical History: No Pertinent History History: Bladder Cancer, Other Psycho-Social History: Anxiety Male Reproductive Disorders: Other Other Medical History: smoker, he has an inhaler and breathing machine. daughter states there is a tumor in his bladder pt states they are unsure if he has a tumor in his bladder. blockage in the bladder. pt reports he was treated for hepatitis years ago type unknown. kidney cancer - Past Surgical History Past Surgical History: Yes Neuro Surgical History: No Pertinent History Cardiac: No Pertinent History Respiratory: No Pertinent History Gastrointestinal: Cholecystectomy, Hernia Repair Genitourinary: No Pertinent History Musculoskeletal: Other Male Surgical History: No Pertinent History Other Surgical History: shoulder surgery - Social History Smoking Status: Current every day smoker How long have you smoked: 30 years Exposure to second hand smoke: No Drug Use: marijuana Patient Lives Alone: No Significant Family History: no pertinent family hx - Nursing Vital Signs Nursing Vital Signs: Initial Vital Signs Temperature 98.4 F 03/02/22 17:00 Pulse Rate 44 L 03/02/22 17:00 Respiratory Rate 20 03/02/22 17:00 Blood Pressure 137/66 03/02/22 17:00 O2 Sat by Pulse Oximetry 100 03/02/22 17:00 Pain Scale Pain Intensity 0 - Physical Exam General Appearance: mild distress, alert Eye Exam: PERRL/EOMI Ears, Nose, Throat Exam: normal ENT inspection, TMs normal, pharynx normal, other (Forehead abrasions) Neck Exam: normal inspection, non-tender, supple, full range of motion Respiratory Exam: normal breath sounds, lungs clear Cardiovascular Exam: normal heart sounds, bradycardia Gastrointestinal/Abdomen Exam: soft, normal bowel sounds, No tenderness Back Exam: normal inspection Extremity Exam: normal inspection Neurologic Exam: alert, oriented x 3, cooperative, alteration hand II-XII nml as tested Skin Exam: normal color SpO2 Interpretation: normal SpO2: 93 O2 Delivery: Room Air Ordered Tests: Active Orders 24 hr Category Date Time Status CERVICAL SPINE WO CONTRAST [CT] Stat Exams 03/02/22 17:01 Ordered CHEST 1 VIEW (PORTABLE) Stat Exams 03/02/22 17:00 Ordered HEAD WITHOUT CONTRAST [CT] Stat Exams 03/02/22 17:01 Ordered CBC W DIFF Stat Lab 03/02/22 17:00 Completed CK-Creatinine Phosphokinase Stat Lab 03/02/22 17:00 Received CMP Stat Lab 03/02/22 17:00 Received NT PRO BNP Stat Lab 03/02/22 17:00 Received POCT GLUCOSE Stat Lab 03/02/22 17:08 Completed TROPONIN Q4H Lab 03/02/22 17:00 Received TROPONIN Q4H Lab 03/02/22 17:00 Received TROPONIN Q4H Lab 03/03/22 01:00 Ordered Urine Triage Profile Stat Lab 03/02/22 17:00 Ordered Medication Summary Generic Name Dose Route Start Last Admin Trade Name Fremicki PRN Reason Stop Dose Admin Sodium Chloride 1,000 mls @ 100 mls/hr 03/02/22 17:00 Sodium Chloride 0.9% 1000 Ml IV 04/01/22 16:59 .Q10H MARIAM Discontinued Medications Generic Name Dose Route Start Last Admin Trade Name Fremicki PRN Reason Stop Dose Admin Atropine Sulfate Confirm 03/02/22 17:14 Atropine Sulfate 1 Mg/10 Ml Abboject Administered 03/02/22 17:15 Dose 2 mg .ROUTE .STK-MED ONE Fentanyl Citrate Confirm 03/02/22 17:14 Fentanyl Citrate 100 Mcg/2 Ml* Vial Administered 03/02/22 17:15 Dose 100 mcg .ROUTE .STK-MED ONE Fentanyl Citrate Confirm 03/02/22 17:24 Fentanyl Citrate 100 Mcg/2 Ml* Vial Administered 03/02/22 17:25 Dose 100 mcg .ROUTE .STK-MED ONE Dopamine HCl/Dextrose Confirm 03/02/22 17:37 Dopamine 400 Mg/D5w 250ml Premix Administered 03/02/22 17:38 Dose 250 mls @ ud IV .STK-MED ONE Magnesium Sulfate Confirm 03/02/22 17:05 Magnesium Sulfate Injection Administered 03/02/22 17:06 Dose 1 gm .ROUTE .STK-MED ONE Ondansetron HCl Confirm 03/02/22 17:14 Ondansetron Hcl 4 Mg/2 Ml Vial Administered 03/02/22 17:15 Dose 4 mg .ROUTE .[facility] ONE Lab/Rad Data: Laboratory Result Diagrams 03/02/22 17:00 03/02/22 17:00 Laboratory Results 03/02/22 03/02/22 03/02/22 Range/Units 17:08 17:00 17:00 WBC (4.0-10.5) x10^3/uL RBC (4.1-5.6) x10^6/uL Hgb (12.5-18.0) g/dL Hct (42-50) % MCV (78-100) fL MCH (26-32) pg MCHC (32-36) g/dL RDW (11.5-14.0) % Plt Count (150-450) x10^3/uL MPV (7.5-11.0) fL Gran % (36.0-66.0) % Immature Gran % (Auto) (0.00-0.4) % Nucleat RBC Rel Count (0.00-0.1) % Eos # (Auto) (0-0.5) x10^3/uL Immature Gran # (Auto) (0.00-0.03) x10^3u/L Absolute Lymphs (auto) (1.0-4.6) x10^3/uL Absolute Monos (auto) (0.0-1.3) x10^3/uL Absolute Nucleated RBC (0.00-0.01) x10^3u/L Lymphocytes % (24.0-44.0) % Monocytes % (0.0-12.0) % Eosinophils % (0.00-5.0) % Basophils % (0.0-0.4) % Absolute Granulocytes (1.4-6.9) x10^3/uL Basophils # (0-0.4) x10^3/uL Sodium 139 (137-145) mmol/L Potassium 4.8 (3.5-5.1) mmol/L Chloride 103 (98-107) mmol/L Carbon Dioxide 29 (22-30) mmol/L Anion Gap 12.5 (5-15) MEQ/L BUN 24 H (9-20) mg/dL Creatinine 1.32 H (0.66-1.25) mg/dL Estimated GFR 58.2 ML/MIN Glucose 81 (74-106) mg/dL POC Glucometer 101 (74 to 106) mg/dL Calcium 8.7 (8.4-10.2) mg/dL Total Bilirubin 0.30 (0.2-1.3) mg/dL AST 34 (17-59) U/L ALT 27 (0-50) U/L Alkaline Phosphatase 78 (38-126) U/L Creatine Kinase 76 (55-170) U/L Troponin I < 0.012 < 0.012 (0.000-0.034) ng/mL NT-Pro-B Natriuret Pep 186 (0-900) pg/mL Serum Total Protein 7.4 (6.3-8.2) g/dL Albumin 4.2 (3.5-5.0) g/dL 03/02/22 Range/Units 17:00 WBC 9.8 (4.0-10.5) x10^3/uL RBC 4.59 (4.1-5.6) x10^6/uL Hgb 13.6 (12.5-18.0) g/dL Hct 43.2 (42-50) % MCV 94.1 (78-100) fL MCH 29.6 (26-32) pg MCHC 31.5 L (32-36) g/dL RDW 14.1 H (11.5-14.0) % Plt Count 205 (150-450) x10^3/uL MPV 11.1 H (7.5-11.0) fL Gran % 87.6 H (36.0-66.0) % Immature Gran % (Auto) 0.3 (0.00-0.4) % Nucleat RBC Rel Count 0.0 (0.00-0.1) % Eos # (Auto) 0.01 (0-0.5) x10^3/uL Immature Gran # (Auto) 0.03 (0.00-0.03) x10^3u/L Absolute Lymphs (auto) 0.61 L (1.0-4.6) x10^3/uL Absolute Monos (auto) 0.54 (0.0-1.3) x10^3/uL Absolute Nucleated RBC 0.00 (0.00-0.01) x10^3u/L Lymphocytes % 6.2 L (24.0-44.0) % Monocytes % 5.5 (0.0-12.0) % Eosinophils % 0.1 (0.00-5.0) % Basophils % 0.3 (0.0-0.4) % Absolute Granulocytes 8.59 H (1.4-6.9) x10^3/uL Basophils # 0.03 (0-0.4) x10^3/uL Sodium (137-145) mmol/L Potassium (3.5-5.1) mmol/L Chloride (98-107) mmol/L Carbon Dioxide (22-30) mmol/L Anion Gap (5-15) MEQ/L BUN (9-20) mg/dL Creatinine (0.66-1.25) mg/dL Estimated GFR ML/MIN Glucose (74-106) mg/dL POC Glucometer (74 to 106) mg/dL Calcium (8.4-10.2) mg/dL Total Bilirubin (0.2-1.3) mg/dL AST (17-59) U/L ALT (0-50) U/L Alkaline Phosphatase (38-126) U/L Creatine Kinase (55-170) U/L Troponin I (0.000-0.034) ng/mL NT-Pro-B Natriuret Pep (0-900) pg/mL Serum Total Protein (6.3-8.2) g/dL Albumin (3.5-5.0) g/dL - Progress Progress: re-examined Progress Note: 03/02/22 18:05 5 years old is evaluated for frequent passing spells with low heart rate. Patient seems to be in third-degree heart block. Given atropine which did not make any difference. Started on dopamine. I have tried to pace him but not successful in capturing. I have discussed with Dr. Delarosa cardiology at [facility], reviewed EKGs and he recommended if blood pressure is more than 90 patient does not need to be paced. Patient is talking, does have few spells for seconds where he feels as he is passing out. Lab work fairly unremarkable. Patient is accepted for transfer to [facility] for transvenous pacemaker placement. Plan discussed with patient and family who understand and agree with it. Discussed with : Other Counseled pt/family regarding: lab results, diagnosis, rad results - Departure Departure Disposition: Transfer Clinical Impression: Symptomatic bradycardia, Complete heart block Condition: Critical Critical Care Time: Yes Critical Care Time(excluding separately billable procedures): Critical 30-74 mins Referrals: STARR FELICIANO [Primary Care Provider] - Follow up/PCP as directed
--- NOTE | 2022-03-02 19:09 | XRAY ---
Indication: Syncope. History renal carcinoma. Comparison: October 19, 2021 Portable apical lordotic chest remains inflated and clear. Heart and mediastinal structures within normal limits again with right Port-A-Cath. Bony thorax intact again with osteopenia and degenerative changes. No new/acute findings.
== END 2022-03-02 19:02 | disposition short-term general hospital (02) ==
LOC: ED 16:53
DX: I44.2 Atrioventricular block, complete (principal); R00.1 Bradycardia, unspecified; R55 Syncope and collapse; R07.9 Chest pain, unspecified; I10 Essential (primary) hypertension; Z72.0 Tobacco use; Z79.899 Other long term (current) drug therapy; Z28.310 Unvaccinated for COVID-19
CPT/HCPCS: 36000; 36415; 71045; 80053; 82550; 82947; 83880; 84484; 85025; 96365; 96374; 96375; 96376; 99284; 99291; J0461; J1265; J2405; J3010; J3475

== ENCOUNTER 2022-04-13 15:57 | Emergency (ER) | payer MEDICARE ==
[2022-04-13] MEDS ORDERED: Sodium Chloride 0.9% 1000 ML 1,000 ML IV SCH (17:15)
--- NOTE | 2022-04-13 17:26 | ERPHSYRPT ---
- History of Present Illness Time Seen by Provider: 04/13/22 16:12 Source: patient Exam Limitations: no limitations Patient Subjective Stated Complaint: C/O "not feeling right". Patient states he realized today that he is taking his spironolactone incorrectly for the past few weeks. Patient has been taking 25mg instead of 12.5mg. Denies fever. States sleeping a lot. Triage Nursing Assessment: Patient ambulated back to ED. No SOB noted. Patient is wearing a life vest. Patient is drowsy, falling asleep during assessment. Patient is alert and oriented but forgetful, patient was unable to remember his phone number for few minutes when asked. Physician History: 62 years old male with multiple medical problems including congestive heart failure, A. fib, pacemaker/defibrillator placement, hypertension presented in t ER with 2 to 3 days history of generalized weakness fatigue and tiredness/not feeling well. Patient cannot explain what exactly he is feeling but not at his baseline. Denies any chest pain palpitations or shortness of breath. No abdominal pain nausea or vomiting. Denies any focal numbness or weakness. Patient reports he feels tired and sleepy all the time. Denies any known sick contact. Timing/Duration: day(s) (2), gradual onset, worse Severity: moderate Modifying Factors: Improves With: nothing Associated Symptoms: loss of appetite, malaise, weakness, No vomiting, No abdominal pain, No shortness of breath, No heartburn, No diaphoresis, No cough, No chest pain, No syncope, No seizure Allergies/Adverse Reactions: No Known Drug Allergies Allergy (Verified 04/13/22 16:42) Home Medications: Amiodarone HCl 1 tab PO DAILY 04/13/22 [History] Carvedilol [Coreg ] 1 tab PO BID 04/13/22 [History] Empagliflozin [Jardiance] 1 tab PO DAILY 04/13/22 [History] Fluticasone/Umeclidin/Vilanter [Trelegy Ellipta 100-62.5-25] 1 puff PO DAILY 04/13/22 [History] Magnesium Oxide 1 tab PO BID 04/13/22 [History] Sacubitril/Valsartan [Entresto 24 mg-26 mg Tablet] 1 tab PO BID 04/13/22 [History] Spironolactone 25 mg [Aldactone 25 MG] 12.5 mg PO DAILY 04/13/22 [History] Tamsulosin HCl 0.4 mg [Flomax 0.4 MG] 1 cap PO DAILY 04/13/22 [History] Trazodone HCl 50 mg [Desyrel 50 mg] 1 tab PO HS 04/13/22 [History] Venlafaxine HCl [Effexor Xr] 1 tab PO DAILY 04/13/22 [History] Hx Tetanus, Diphtheria Vaccination/Date Given: Yes Hx Influenza Vaccination/Date Given: No Hx Pneumococcal Vaccination/Date Given: No Immunizations Up to Date: Yes Travel Risk - International Travel Have you traveled outside of the country in past 3 weeks: No - Coronavirus Screening Are you exhibiting any of the following symptoms?: No Close contact with a COVID-19 positive Pt in past 14-21 Days: No - Vaccine Status Have you recieved a Covid-19 vaccination: No - Review of Systems Constitutional: Fatigue, Weakness Eyes: No Symptoms Ears, Nose, & Throat: No Symptoms Respiratory: No Symptoms Cardiac: No Symptoms Abdominal/Gastrointestinal: No Symptoms Genitourinary Symptoms: No Symptoms Musculoskeletal: Arthralgias Skin: No Symptoms Neurological: No Symptoms Psychological: No Symptoms Endocrine: No Symptoms Hematologic/Lymphatic: No Symptoms Immunological/Allergic: No Symptoms - Past Medical History Pertinent Past Medical History: Yes Neurological History: Dementia ENT History: No Pertinent History Cardiac History: Hypertension Respiratory History: COPD, Other Endocrine Medical History: No Pertinent History Musculoskeletal History: Osteoarthritis GI Medical History: No Pertinent History History: Bladder Cancer, Kidney Cancer, Other Psycho-Social History: Anxiety Male Reproductive Disorders: Other Other Medical History: possible tumor/blockage in the bladder, currently wearing a life vest - Past Surgical History Past Surgical History: Yes Neuro Surgical History: No Pertinent History Cardiac: Pacemaker Respiratory: No Pertinent History Gastrointestinal: Cholecystectomy, Hernia Repair Genitourinary: No Pertinent History Musculoskeletal: Other Male Surgical History: No Pertinent History Other Surgical History: shoulder surgery - Social History Smoking Status: Current every day smoker How long have you smoked: 30 years Exposure to second hand smoke: No Drug Use: marijuana Patient Lives Alone: No Significant Family History: no pertinent family hx - Nursing Vital Signs Nursing Vital Signs: Initial Vital Signs Temperature 97.5 F 04/13/22 16:49 Pulse Rate 65 04/13/22 16:49 Respiratory Rate 20 04/13/22 16:49 Blood Pressure 95/59 04/13/22 16:49 O2 Sat by Pulse Oximetry 96 04/13/22 16:49 Pain Scale Pain Intensity 0 - Physical Exam General Appearance: no apparent distress, alert Eye Exam: PERRL/EOMI Ears, Nose, Throat Exam: normal ENT inspection Neck Exam: normal inspection, non-tender, supple, full range of motion Respiratory Exam: normal breath sounds, lungs clear Cardiovascular Exam: regular rate/rhythm, normal peripheral pulses Gastrointestinal/Abdomen Exam: soft, normal bowel sounds, No tenderness Back Exam: normal inspection, normal range of motion Extremity Exam: normal inspection, normal range of motion Neurologic Exam: alert, oriented x 3, cooperative, hand quilter II-XII nml as tested, nml cerebellar function, sensation nml, No motor deficits Skin Exam: normal color SpO2 Interpretation: normal SpO2: 96 O2 Delivery: Room Air - Course EKG Interpreted by Me: RATE (60 atrial-ventricular paced rhythm), Right [place] Deviation, NORMAL INTERVALS, Q-wave Ordered Tests: Active Orders 24 hr Category Date Time Status [employer] STAT Care 04/13/22 17:02 Completed Clean Catch Urine Specimen STAT Care 04/13/22 18:35 Completed EKG-ER Only STAT Care 04/13/22 17:01 Completed IV Insertion STAT Care 04/13/22 17:01 Completed CHEST 1 VIEW (PORTABLE) Stat Exams 04/13/22 17:02 Taken HEAD WITHOUT CONTRAST [CT] Stat Exams 04/13/22 19:15 Taken BLOOD CULTURE Stat Lab 04/13/22 17:30 Received CBC W DIFF Stat Lab 04/13/22 17:30 Completed CMP Stat Lab 04/13/22 17:30 Completed Lactic Acid Stat Lab 04/13/22 17:40 Completed MAGNESIUM Stat Lab 04/13/22 17:30 Completed NT PRO BNP Stat Lab 04/13/22 17:30 Completed PROCALCITONIN Stat Lab 04/13/22 17:30 Completed TROPONIN Q4H Lab 04/13/22 17:30 Completed UA W/RFX UR CULTURE Stat Lab 04/13/22 20:00 Completed Urine Triage Profile Stat Lab 04/13/22 19:09 Completed Medication Summary Discontinued Medications Generic Name Dose Route Start Last Admin Trade Name Freq PRN Reason Stop Dose Admin Doxycycline Hyclate 100 mg 04/13/22 20:22 04/13/22 20:29 Doxycycline Hyclate 100 Mg Tablet PO 04/13/22 20:23 100 mg STAT ONE Administration Doxycycline Hyclate Confirm 04/13/22 20:27 Doxycycline Hyclate 100 Mg Tablet Administered 04/13/22 20:28 Dose 100 mg .ROUTE .STK-MED ONE Heparin Sodium (Beef Lung) 500 units 04/13/22 20:35 04/13/22 20:37 Heparin Lock Flush Pf 500 Units/5 Ml Syringe PORT FLUSH 05/13/22 20:34 500 units PRN PRN Administration IV PORT FLUSH Sodium Chloride 1,000 mls @ 100 mls/hr 04/13/22 17:15 04/13/22 18:00 Sodium Chloride 0.9% 1000 Ml IV 05/13/22 17:14 100 mls/hr .Q10H MARIAM Administration Sodium Chloride Confirm 04/13/22 17:59 Sodium Chloride 0.9% 1000 Ml Administered 04/13/22 18:00 Dose 1,000 mls @ ud .ROUTE .STK-MED ONE Lab/Rad Data: Laboratory Result Diagrams 04/13/22 17:30 04/13/22 17:30 Laboratory Results 04/13/22 04/13/22 04/13/22 Range/Units Unknown 20:00 19:09 WBC (4.0-10.5) x10^3/uL RBC (4.1-5.6) x10^6/uL Hgb (12.5-18.0) g/dL Hct (42-50) % MCV (78-100) fL MCH (26-32) pg MCHC (32-36) g/dL RDW (11.5-14.0) % Plt Count (150-450) x10^3/uL MPV (7.5-11.0) fL Gran % (36.0-66.0) % Immature Gran % (Auto) (0.00-0.4) % Nucleat RBC Rel Count (0.00-0.1) % Eos # (Auto) (0-0.5) x10^3/uL Immature Gran # (Auto) (0.00-0.03) x10^3u/L Absolute Lymphs (auto) (1.0-4.6) x10^3/uL Absolute Monos (auto) (0.0-1.3) x10^3/uL Absolute Nucleated RBC (0.00-0.01) x10^3u/L Lymphocytes % (24.0-44.0) % Monocytes % (0.0-12.0) % Eosinophils % (0.00-5.0) % Basophils % (0.0-0.4) % Absolute Granulocytes (1.4-6.9) x10^3/uL Basophils # (0-0.4) x10^3/uL Sodium (137-145) mmol/L Potassium (3.5-5.1) mmol/L Chloride (98-107) mmol/L Carbon Dioxide (22-30) mmol/L Anion Gap (5-15) MEQ/L BUN (9-20) mg/dL Creatinine (0.66-1.25) mg/dL Estimated GFR ML/MIN Glucose (74-106) mg/dL Lactic Acid (0.4-2.0) Calcium (8.4-10.2) mg/dL Magnesium (1.6-2.3) mg/dL Total Bilirubin (0.2-1.3) mg/dL AST (17-59) U/L ALT (0-50) U/L Alkaline Phosphatase (38-126) U/L Troponin I (0.000-0.034) ng/mL NT-Pro-B Natriuret Pep (0-900) pg/mL Serum Total Protein (6.3-8.2) g/dL Albumin (3.5-5.0) g/dL Procalcitonin (0.030-0.080) ng/mL Urine Color Yellow (Yellow) Urine Appearance Clear (Clear) Urine pH 5.5 (4.6-8.0) Ur Specific [place] 1.015 (1.005-1.030) Urine Protein Negative (Negative) Urine Ketones Negative (Negative) Urine Blood Negative (Negative) Urine Nitrite Negative (Negative) Urine Bilirubin Negative (Negative) Urine Urobilinogen 0.2 (0.2) mg/dL Ur Leukocyte Esterase Trace A (Negative) U Hyaline Cast (Auto) 0-2 (0-2) /LPF Urine Microscopic RBC 0-2 (0-5) /HPF Urine Microscopic WBC 3-5 (0-5) /HPF Ur Epithelial Cells None Seen (None Seen) /HPF Urine Bacteria None Seen (None Seen) /HPF Urine Culture Reflexed NO (NO) Urine Glucose 100 A (Negative) mg/dL Urine Opiates Level NEGATIVE (NEGATIVE) Ur Methadone NEGATIVE (NEGATIVE) Urine Barbiturates NEGATIVE (NEGATIVE) Ur Phencyclidine (PCP) NEGATIVE (NEGATIVE) Urine Amphetamine POSITIVE (NEGATIVE) U Benzodiazepine Level NEGATIVE (NEGATIVE) Urine Cocaine NEGATIVE (NEGATIVE) Urine Marijuana (THC) NEGATIVE (NEGATIVE) Influenza Type A Ag NEGATIVE (NEGATIVE) Influenza Type B Ag NEGATIVE (NEGATIVE) RSV (PCR) NEGATIVE (Negative) SARS-CoV-2 (PCR) NEGATIVE (NEGATIVE) 04/13/22 04/13/22 04/13/22 Range/Units 17:40 17:30 17:30 WBC (4.0-10.5) x10^3/uL RBC (4.1-5.6) x10^6/uL Hgb (12.5-18.0) g/dL Hct (42-50) % MCV (78-100) fL MCH (26-32) pg MCHC (32-36) g/dL RDW (11.5-14.0) % Plt Count (150-450) x10^3/uL MPV (7.5-11.0) fL Gran % (36.0-66.0) % Immature Gran % (Auto) (0.00-0.4) % Nucleat RBC Rel Count (0.00-0.1) % Eos # (Auto) (0-0.5) x10^3/uL Immature Gran # (Auto) (0.00-0.03) x10^3u/L Absolute Lymphs (auto) (1.0-4.6) x10^3/uL Absolute Monos (auto) (0.0-1.3) x10^3/uL Absolute Nucleated RBC (0.00-0.01) x10^3u/L Lymphocytes % (24.0-44.0) % Monocytes % (0.0-12.0) % Eosinophils % (0.00-5.0) % Basophils % (0.0-0.4) % Absolute Granulocytes (1.4-6.9) x10^3/uL Basophils # (0-0.4) x10^3/uL Sodium (137-145) mmol/L Potassium (3.5-5.1) mmol/L Chloride (98-107) mmol/L Carbon Dioxide (22-30) mmol/L Anion Gap (5-15) MEQ/L BUN (9-20) mg/dL Creatinine (0.66-1.25) mg/dL Estimated GFR ML/MIN Glucose (74-106) mg/dL Lactic Acid 0.9 (0.4-2.0) Calcium (8.4-10.2) mg/dL Magnesium (1.6-2.3) mg/dL Total Bilirubin (0.2-1.3) mg/dL AST (17-59) U/L ALT (0-50) U/L Alkaline Phosphatase (38-126) U/L Troponin I < 0.012 (0.000-0.034) ng/mL NT-Pro-B Natriuret Pep (0-900) pg/mL Serum Total Protein (6.3-8.2) g/dL Albumin (3.5-5.0) g/dL Procalcitonin 0.101 H (0.030-0.080) ng/mL Urine Color (Yellow) Urine Appearance (Clear) Urine pH (4.6-8.0) Ur Specific [place] (1.005-1.030) Urine Protein (Negative) Urine Ketones (Negative) Urine Blood (Negative) Urine Nitrite (Negative) Urine Bilirubin (Negative) Urine Urobilinogen (0.2) mg/dL Ur Leukocyte Esterase (Negative) U Hyaline Cast (Auto) (0-2) /LPF Urine Microscopic RBC (0-5) /HPF Urine Microscopic WBC (0-5) /HPF Ur Epithelial Cells (None Seen) /HPF Urine Bacteria (None Seen) /HPF Urine Culture Reflexed (NO) Urine Glucose (Negative) mg/dL Urine Opiates Level (NEGATIVE) Ur Methadone (NEGATIVE) Urine Barbiturates (NEGATIVE) Ur Phencyclidine (PCP) (NEGATIVE) Urine Amphetamine (NEGATIVE) U Benzodiazepine Level (NEGATIVE) Urine Cocaine (NEGATIVE) Urine Marijuana (THC) (NEGATIVE) Influenza Type A Ag (NEGATIVE) Influenza Type B Ag (NEGATIVE) RSV (PCR) (Negative) SARS-CoV-2 (PCR) (NEGATIVE) 04/13/22 04/13/22 Range/Units 17:30 17:30 WBC 7.1 (4.0-10.5) x10^3/uL RBC 4.95 (4.1-5.6) x10^6/uL Hgb 14.9 (12.5-18.0) g/dL Hct 43.8 (42-50) % MCV 88.5 (78-100) fL MCH 30.1 (26-32) pg MCHC 34.0 (32-36) g/dL RDW 12.3 (11.5-14.0) % Plt Count 245 (150-450) x10^3/uL MPV 10.5 (7.5-11.0) fL Gran % 66.1 H (36.0-66.0) % Immature Gran % (Auto) 0.3 (0.00-0.4) % Nucleat RBC Rel Count 0.0 (0.00-0.1) % Eos # (Auto) 0.54 H (0-0.5) x10^3/uL Immature Gran # (Auto) 0.02 (0.00-0.03) x10^3u/L Absolute Lymphs (auto) 1.21 (1.0-4.6) x10^3/uL Absolute Monos (auto) 0.57 (0.0-1.3) x10^3/uL Absolute Nucleated RBC 0.00 (0.00-0.01) x10^3u/L Lymphocytes % 17.1 L (24.0-44.0) % Monocytes % 8.1 (0.0-12.0) % Eosinophils % 7.6 H (0.00-5.0) % Basophils % 0.8 (0.0-0.4) % Absolute Granulocytes 4.67 (1.4-6.9) x10^3/uL Basophils # 0.06 (0-0.4) x10^3/uL Sodium 134 L (137-145) mmol/L Potassium 4.6 (3.5-5.1) mmol/L Chloride 99 (98-107) mmol/L Carbon Dioxide 28 (22-30) mmol/L Anion Gap 10.9 (5-15) MEQ/L BUN 19 (9-20) mg/dL Creatinine 1.10 (0.66-1.25) mg/dL Estimated GFR > 60.0 ML/MIN Glucose 93 (74-106) mg/dL Lactic Acid (0.4-2.0) Calcium 9.4 (8.4-10.2) mg/dL Magnesium 1.9 (1.6-2.3) mg/dL Total Bilirubin 0.50 (0.2-1.3) mg/dL AST 28 (17-59) U/L ALT 19 (0-50) U/L Alkaline Phosphatase 94 (38-126) U/L Troponin I (0.000-0.034) ng/mL NT-Pro-B Natriuret Pep 57.2 (0-900) pg/mL Serum Total Protein 7.9 (6.3-8.2) g/dL Albumin 4.4 (3.5-5.0) g/dL Procalcitonin (0.030-0.080) ng/mL Urine Color (Yellow) Urine Appearance (Clear) Urine pH (4.6-8.0) Ur Specific [place] (1.005-1.030) Urine Protein (Negative) Urine Ketones (Negative) Urine Blood (Negative) Urine Nitrite (Negative) Urine Bilirubin (Negative) Urine Urobilinogen (0.2) mg/dL Ur Leukocyte Esterase (Negative) U Hyaline Cast (Auto) (0-2) /LPF Urine Microscopic RBC (0-5) /HPF Urine Microscopic WBC (0-5) /HPF Ur Epithelial Cells (None Seen) /HPF Urine Bacteria (None Seen) /HPF Urine Culture Reflexed (NO) Urine Glucose (Negative) mg/dL Urine Opiates Level (NEGATIVE) Ur Methadone (NEGATIVE) Urine Barbiturates (NEGATIVE) Ur Phencyclidine (PCP) (NEGATIVE) Urine Amphetamine (NEGATIVE) U Benzodiazepine Level (NEGATIVE) Urine Cocaine (NEGATIVE) Urine Marijuana (THC) (NEGATIVE) Influenza Type A Ag (NEGATIVE) Influenza Type B Ag (NEGATIVE) RSV (PCR) (Negative) SARS-CoV-2 (PCR) (NEGATIVE) - Progress Progress: improved, re-examined Progress Note: 04/13/22 20:23 62 years old is evaluated for generalized feeling of being unwell without any focal problem. Patient was very sleepy on presentation, given fluids, on reevaluation he is feeling much better. Work-up showed normal white count, fairly unremarkable chemistries, no UTI, chest x-ray no acute cardiopulmonary findings. Negative troponins. I have obtained CT head as well because of patient sleeping on presentation which is negative. Has elevated procalcitonin with no obvious focus of infection. He is given doxycycline, cultures are o btained and pending. Patient is offered observation admission but he does not want to stay and reports that he is feeling much better and wants to go home. He is being discharged with outpatient follow-up. Discussed signs symptoms of worsening needing return to ER which he seems understanding. Stable for discharge. Counseled pt/family regarding: lab results, diagnosis, need for follow-up, rad results - Departure Departure Disposition: Home Clinical Impression: Generalized weakness Condition: Stable Critical Care Time: No Referrals: STARR FELICIANO [Primary Care Provider] - Follow up/PCP as directed (1-2 days for reevaluation) Instructions: Generalized Weakness (DC) Additional Instructions: Drink plenty of fluids to keep yourself well-hydrated. Take medications as recommended. Follow-up with primary care for reevaluation. Return to ER for worsening of generalized weakness, cough fever chills etc. Prescriptions: Doxycycline Hyclate 100 mg [Vibramycin 100 MG] 100 mg PO BID #14 tab
[2022-04-13] MEDS ORDERED: Sodium Chloride 0.9% 1000 ML 1,000 ML ONE (17:59)
[2022-04-13 18:02] LABS: Absolute Neutrophil Ct (ANC) 4.67 x10^3/uL (1.4-6.9); Basophil (Absolute #) 0.06 x10^3/uL (0-0.4); Eosinophil % 7.6 % (0.00-5.0); Eosinophil (Absolute #) 0.54 x10^3/uL (0-0.5); Hematocrit 43.8 % (42-50); Hemoglobin 14.9 g/dL (12.5-18.0); Lymphocyte (Absolute #) 1.21 x10^3/uL (1.0-4.6); Lymphocytes % 17.1 % (24.0-44.0); Mean Cell Volume 88.5 fL (78-100); Mean Corpuscular Hemoglobin 30.1 pg (26-32); Mean Platelet Volume 10.5 fL (7.5-11.0); Monocyte (Absolute #) 0.57 x10^3/uL (0.0-1.3); Monocytes % 8.1 % (0.0-12.0); Neutrophil % 66.1 % (36.0-66.0); Platelet Count 245 x10^3/uL (150-450); Red Blood Count 4.95 x10^6/uL (4.1-5.6); Red Cell Distribution Width 12.3 % (11.5-14.0); White Blood Count 7.1 x10^3/uL (4.0-10.5)
[2022-04-13 18:07] LABS: ALBUMIN 4.4 g/dL (3.5-5.0); ALKALINE PHOSPHATASE 94 U/L (38-126); ANION GAP 10.9 MEQ/L (5-15); BLOOD UREA NITROGEN 19 mg/dL (9-20); CHLORIDE 99 mmol/L (98-107); Calcium 9.4 mg/dL (8.4-10.2); Carbon Dioxide 28 mmol/L (22-30); EST GLOMERULAR FILTRATION RATE > 60.0 ML/MIN; Glucose 93 mg/dL (74-106); MAGNESIUM 1.9 mg/dL (1.6-2.3); NT PRO BNP 57.2 pg/mL (0-900); Potassium 4.6 mmol/L (3.5-5.1); SGOT/AST 28 U/L (17-59); SGPT/ALT 19 U/L (0-50); SODIUM 134 mmol/L (137-145); Total Protein 7.9 g/dL (6.3-8.2)
[2022-04-13 18:29] LABS: INFLUENZA A NEGATIVE (NEGATIVE); INFLUENZA B NEGATIVE (NEGATIVE); RESPIRATORY SYNCTIAL VIRUS NEGATIVE (Negative); SARS-CoV-2 Xpert Express NEGATIVE (NEGATIVE)
[2022-04-13 20:14] LABS: Appearance Clear (Clear); Bacteria None Seen /HPF (None Seen); Bilirubin Negative (Negative); Blood Negative (Negative); Epithelial Cells None Seen /HPF (None Seen); Glucose 100 mg/dL (Negative); Hyaline Casts 0-2 /LPF (0-2); Ketones Negative (Negative); Leukocyte Esterase Trace (Negative); Nitrite Negative (Negative); Ph 5.5 (4.6-8.0); Protein,Urine Dip Negative (Negative); RBC 0-2 /HPF (0-5); Specific Gravity 1.015 (1.005-1.030); Urobilinogen 0.2 mg/dL (0.2)
[2022-04-13 20:20] LABS: ADD URINE CULTURE? NO (NO)
[2022-04-13 20:20] LABS: Barbiturate,Urine NEGATIVE (NEGATIVE); Benzodiazepine,Urine NEGATIVE (NEGATIVE); Cocaine,Urine NEGATIVE (NEGATIVE); Methadone,Urine NEGATIVE (NEGATIVE); Opiate,Urine NEGATIVE (NEGATIVE); PCP,Urine NEGATIVE (NEGATIVE); THC,Urine NEGATIVE (NEGATIVE)
[2022-04-13] MEDS ORDERED: Vibramycin 100 MG PO ONE (20:22)
[2022-04-13] MEDS ORDERED: Vibramycin 100 MG ONE (20:27)
[2022-04-13 20:34] VITALS: PULSE 66
[2022-04-13 20:35] VITALS: BP 107/69
[2022-04-13 21:27] LABS: Amphetamine,Urine POSITIVE (NEGATIVE)
[2022-04-14 00:10] VITALS: O2SAT 96
--- NOTE | 2022-04-14 08:29 | XRAY ---
Indication: Headache, weakness, and drowsiness. Multiple contiguous images obtained through the head without contrast. Comparison: None Normal appearing brain parenchyma, ventricles, and bony calvarium for patient's age. There is near complete opacification of both maxillary sinuses. Additional mild/moderate mucosal thickening of both ethmoid, frontal, and sphenoid sinuses. Mastoid air cells are clear. Impression: Pansinusitis. Remaining CT head without contrast exam is normal.
--- NOTE | 2022-04-14 08:31 | XRAY ---
Indication: Weakness. Comparison: March 02, 2022 Portable chest demonstrates new multiple overlying electronic monitoring devices and left pacemaker partially obscuring underlying cardiopulmonary structures. Visualized lungs inflated and clear. Heart not enlarged again with right Port-A-Cath. Bony thorax intact. Impression: Nonacute limited chest.
== END 2022-04-13 20:45 | disposition home or self-care (01) ==
LOC: ED 15:57
DX: R53.1 Weakness (principal); R53.83 Other fatigue; I11.0 Hypertensive heart disease with heart failure; I50.9 Heart failure, unspecified; Z79.899 Other long term (current) drug therapy; Z28.310 Unvaccinated for COVID-19; Z72.0 Tobacco use; Z20.828 Contact with and (suspected) exposure to other viral communicable diseases
CPT/HCPCS: 0241U; 36000; 36415; 70450; 71045; 80053; 80307; 81001; 83605; 83735; 83880; 84145; 84484; 85025; 87040; 93005; 93041; 96360; 96361; 99284; J1642; A9270-GY

== ENCOUNTER 2022-05-13 14:55 | Emergency (ER) | payer MEDICARE ==
[2022-05-13 15:09] VITALS: BP 104/58; PULSE 69; O2SAT 98
[2022-05-13] MEDS ORDERED: TORAdol 30 mg Injection IM ONE (15:46)
--- NOTE | 2022-05-13 15:46 | ERPHSYRPT ---
- History of Present Illness Time Seen by Provider: 05/13/22 15:39 Source: patient Exam Limitations: no limitations Patient Subjective Stated Complaint: PT states "I have this horrible pain in my hands and finger. My fingers are cold. I was given high gabapentin three days ago and it is not helping at all." Triage Nursing Assessment: Pt presented alert and oriented X 3, skin pwd. Pt ambulates with an upright steady gait, able to speak in clear full sentences. Pt is wearing a life vest due to pacemaker placement in february. Physician History: Patient is a 62-year-old male who presents with a complaint of burning pain in both hands. The pattern of the pain is typical for carpal tunnel and that the fifth digit is uniformly spared. He also complains that he has been taking maximum doses of gabapentin without any benefit. He used to see a neurologist who told him that he had a peripheral neuropathy. Occurred: other (Burning pain is chronic but worse) Quality: burning Allergies/Adverse Reactions: No Known Drug Allergies Allergy (Verified 04/13/22 16:42) Home Medications: Amiodarone HCl 1 tab PO DAILY 04/13/22 [History] Carvedilol [Coreg ] 1 tab PO BID 04/13/22 [History] Empagliflozin [Jardiance] 1 tab PO DAILY 04/13/22 [History] Fluticasone/Umeclidin/Vilanter [Trelegy Ellipta 100-62.5-25] 1 puff PO DAILY 04/13/22 [History] Magnesium Oxide 1 tab PO BID 04/13/22 [History] Sacubitril/Valsartan [Entresto 24 mg-26 mg Tablet] 1 tab PO BID 04/13/22 [History] Spironolactone 25 mg [Aldactone 25 MG] 12.5 mg PO DAILY 04/13/22 [History] Tamsulosin HCl 0.4 mg [Flomax 0.4 MG] 1 cap PO DAILY 04/13/22 [History] Trazodone HCl 50 mg [Desyrel 50 mg] 1 tab PO HS 04/13/22 [History] Venlafaxine HCl [Effexor Xr] 1 tab PO DAILY 04/13/22 [History] Hx Tetanus, Diphtheria Vaccination/Date Given: Yes Hx Influenza Vaccination/Date Given: No Hx Pneumococcal Vaccination/Date Given: No Immunizations Up to Date: Yes Travel Risk - International Travel Have you traveled outside of the country in past 3 weeks: No - Coronavirus Screening Are you exhibiting any of the following symptoms?: No Close contact with a COVID-19 positive Pt in past 14-21 Days: No - Vaccine Status Have you recieved a Covid-19 vaccination: No - Review of Systems Constitutional: No Fever, No Chills Eyes: No Symptoms Ears, Nose, & Throat: No Symptoms Respiratory: No Cough, No Dyspnea Cardiac: No Chest Pain, No Edema, No Syncope Abdominal/Gastrointestinal: No Abdominal Pain, No Nausea, No Vomiting, No Diarrhea Genitourinary Symptoms: No Dysuria Musculoskeletal: No Back Pain, No Neck Pain Skin: No Rash Neurological: Parasthesia, No Dizziness, No Focal Weakness, No Sensory Changes Psychological: No Symptoms Endocrine: No Symptoms All Other Systems: Reviewed and Negative - Past Medical History Pertinent Past Medical History: Yes Neurological History: Dementia ENT History: No Pertinent History Cardiac History: Hypertension Respiratory History: COPD, Other Endocrine Medical History: No Pertinent History Musculoskeletal History: Osteoarthritis GI Medical History: No Pertinent History History: Bladder Cancer, Kidney Cancer, Other Psycho-Social History: Anxiety Male Reproductive Disorders: Other Other Medical History: possible tumor/blockage in the bladder, currently wearing a life vest - Past Surgical History Past Surgical History: Yes Neuro Surgical History: No Pertinent History Cardiac: Pacemaker Respiratory: No Pertinent History Gastrointestinal: Cholecystectomy, Hernia Repair Genitourinary: No Pertinent History Musculoskeletal: Other Male Surgical History: No Pertinent History Other Surgical History: shoulder surgery - Social History Smoking Status: Current every day smoker How long have you smoked: 30 years Exposure to second hand smoke: No Drug Use: marijuana Patient Lives Alone: No Significant Family History: no pertinent family hx - Nursing Vital Signs Nursing Vital Signs: Initial Vital Signs Temperature 97.3 F 05/13/22 15:05 Pulse Rate 69 05/13/22 15:05 Respiratory Rate 22 05/13/22 15:05 Blood Pressure 104/58 05/13/22 15:05 O2 Sat by Pulse Oximetry 98 05/13/22 15:05 Pain Scale Pain Intensity 5 - Physical Exam General Appearance: mild distress Eyes, Ears, Nose, Throat Exam: normal ENT inspection Neck Exam: non-tender, supple Cardiovascular/Respiratory Exam: chest non-tender, normal breath sounds, regular rate/rhythm, no respiratory distress Abdominal Exam: non-tender, No guarding Back Exam: normal inspection, No vertebral tenderness Shoulder Exam: normal inspection Elbow/Forearm Exam: normal inspection Wrist Exam: normal inspection Hand Exam: limited ROM (Area of pain is remarkable for sparing of the fifth digit.) Neuro/Tendon Exam: normal sensation, normal motor functions Mental Status Exam: alert, oriented x 3, cooperative Skin Exam: normal color, warm, dry SpO2 Interpretation: normal SpO2: 98 O2 Delivery: Room Air - Course Nursing assessment & vital signs reviewed: Yes - Progress Progress: unchanged - Departure Departure Disposition: Home Clinical Impression: Carpal tunnel syndrome Condition: Stable Critical Care Time: No Referrals: STARR FELICIANO [Primary Care Provider] - Follow up/PCP as directed Instructions: Carpal Tunnel Syndrome (DC) Prescriptions: Prednisone 20 mg [Deltasone 20 mg] 20 mg PO BID 4 Days #8 tablet Diclofenac Sodium 50 mg [Voltaren 50 mg] 50 mg PO TID 30 Days #90 tablet
[2022-05-13] MEDS ORDERED: solu-MEDROL 125 MG, Sterile H2O 10 ml 2 ML IM ONE ×2 (15:47)
[2022-05-13] MEDS ORDERED: TORAdol 30 mg Injection ONE (15:51)
[2022-05-13] MEDS ORDERED: solu-MEDROL ONE (15:51)
[2022-05-13] MEDS ORDERED: Sterile H2O 10 ml IJ ONE (15:51)
== END 2022-05-13 16:12 | disposition home or self-care (01) ==
LOC: ED 14:55
DX: G56.03 Carpal tunnel syndrome, bilateral upper limbs (principal); M79.641 Pain in right hand; M79.642 Pain in left hand; I10 Essential (primary) hypertension; Z79.52 Long term (current) use of systemic steroids; Z79.899 Other long term (current) drug therapy; Z28.310 Unvaccinated for COVID-19; Z72.0 Tobacco use
CPT/HCPCS: 96372; 99283; A4570; J1885; J2930

== ENCOUNTER 2022-11-21 13:58 | Observation (INO) | payer MEDICARE ==
[2022-11-21] MEDS ORDERED: TORAdol 30 mg Injection IV ONE (14:16)
[2022-11-21] MEDS ORDERED: TORAdol 30 mg Injection ONE (14:29)
[2022-11-21 14:36] LABS: Absolute Neutrophil Ct (ANC) 3.57 x10^3/uL (1.4-6.9); BASOPHIL % 0.6 % (0.0-0.4); Basophil (Absolute #) 0.04 x10^3/uL (0-0.4); Eosinophil % 16.6 % (0.00-5.0); Eosinophil (Absolute #) 1.12 x10^3/uL (0-0.5); Hematocrit 29.3 % (42-50); Hemoglobin 9.7 g/dL (12.5-18.0); IMMATURE GRAN # 0.05 x10^3u/L (0.00-0.03); IMMATURE GRAN % 0.7 % (0.00-0.4); Lymphocytes % 17.8 % (24.0-44.0); Mean Cell Volume 82.3 fL (78-100); Mean Corpuscular Hemoglobin 27.2 pg (26-32); Mean Corpuscular Hgb Concent. 33.1 g/dL (32-36); Mean Platelet Volume 9.7 fL (7.5-11.0); Monocyte (Absolute #) 0.78 x10^3/uL (0.0-1.3); Monocytes % 11.5 % (0.0-12.0); Neutrophil % 52.8 % (36.0-66.0); Platelet Count 200 x10^3/uL (150-450); Red Blood Count 3.56 x10^6/uL (4.1-5.6); Red Cell Distribution Width 13.1 % (11.5-14.0); White Blood Count 6.8 x10^3/uL (4.0-10.5)
[2022-11-21 14:50] LABS: ALBUMIN 3.7 g/dL (3.5-5.0); ALKALINE PHOSPHATASE 103 U/L (38-126); ANION GAP 15.9 MEQ/L (5-15); BLOOD UREA NITROGEN 17 mg/dL (9-20); CHLORIDE 97 mmol/L (98-107); Calcium 9.1 mg/dL (8.4-10.2); Carbon Dioxide 22 mmol/L (22-30); Creatinine 1 1.06 mg/dL (0.66-1.25); EST GLOMERULAR FILTRATION RATE > 60.0 ML/MIN; Glucose 120 mg/dL (74-106); Potassium 4.5 mmol/L (3.5-5.1); SGOT/AST 43 U/L (17-59); SGPT/ALT 34 U/L (0-50); SODIUM 131 mmol/L (137-145); Total Protein 7.6 g/dL (6.3-8.2)
--- NOTE | 2022-11-21 15:41 | ERPHSYRPT ---
- History of Present Illness Time Seen by Provider: 11/21/22 14:30 Source: patient Exam Limitations: no limitations Patient Subjective Stated Complaint: pt states I have this pain that started last night in my ribs. Triage Nursing Assessment: pt came into the er via ambulance; pt is axo x4; c/o left rib pain; pt is SOB; hoarseness present when pt talks; lips are cracked and chapped; wheezing present in lucien lower lobes; hyperactive bowel sounds in all quads; mucus membranes pink and dry; skin is PDW; vitals wnl Physician History: Patient is 62-year-old male presents to our ED for evaluation of left-sided flank pain. Pain started yesterday. Patient states started out as an abdominal discomfort. Pain intensified overnight. Pain is moderate to severe. Patient arrived via EMS. No trauma. No fever. No nausea vomiting diaphoresis. Symptoms are mild to moderate in intensity. No specific worsening improving factors. Patient has history of kidney stones and states this pain is similar. No other systemic manifestations. Patient voices no other complaints or concerns at this time. Portions of this note were created with voice recognition technology. There may be grammatical, spelling, punctuation or sound alike errors Timing/Duration: yesterday Severity: moderate Modifying Factors: Improves With: nothing Associated Symptoms: denies symptoms Allergies/Adverse Reactions: No Known Drug Allergies Allergy (Verified 04/13/22 16:42) Home Medications: Amiodarone HCl 1 tab PO DAILY 04/13/22 [History] Fluticasone/Umeclidin/Vilanter [Trelegy Ellipta 100-62.5-25] 1 puff PO DAILY 04/13/22 [History] Trazodone HCl 50 mg [Desyrel 50 mg] 1 tab PO HS 04/13/22 [History] Albuterol 2.5 mg/0.5 ml [PROVENTIL Solution 2.5 MG/0.5 ML] 0.5 ml IH Q2H/PRN PRN 11/21/22 [History] Albuterol 2.5 mg/3 ml Neb [Proventil 2.5 mg/3 ml Neb] 3 ml IH Q6HPRN PRN 11/21/22 [History] Albuterol Sulfate [Proair Respiclick] 2 puff IH Q6HPRN PRN 11/21/22 [History] Cholecalciferol (Vitamin D3) [Vitamin D3] 50 mcg PO DAILY 11/21/22 [History] Fluticasone Propionate [Flonase NASAL] 1 puff NS DAILY 11/21/22 [History] Folic Acid 1 mg PO DAILY 11/21/22 [History] Furosemide [Lasix] 10 mg PO DAILY 11/21/22 [History] Gabapentin 300 mg PO HS 11/21/22 [History] Lacosamide [Vimpat] 50 mg PO BID 11/21/22 [History] Levothyroxine Sodium 75 mcg PO DAILY 11/21/22 [History] Megestrol Acetate 20 mg PO QID 11/21/22 [History] Metoprolol Succinate 0.5 tab PO DAILY 11/21/22 [History] Midodrine HCl 5 mg PO TID 11/21/22 [History] Hx Tetanus, Diphtheria Vaccination/Date Given: Yes Hx Influenza Vaccination/Date Given: No Hx Pneumococcal Vaccination/Date Given: No Travel Risk - International Travel Have you traveled outside of the country in past 3 weeks: No - Coronavirus Screening Are you exhibiting any of the following symptoms?: Yes Symptoms: Shortness of Breath - Vaccine Status Have you recieved a Covid-19 vaccination: No - Review of Systems Constitutional: No Symptoms, No Fever, No Chills Eyes: No Symptoms Ears, Nose, & Throat: No Symptoms Respiratory: No Symptoms, No Cough, No Dyspnea Cardiac: No Symptoms, No Chest Pain, No Edema, No Syncope Abdominal/Gastrointestinal: No Symptoms, Appetite Changes, No Abdominal Pain, No Nausea, No Vomiting, No Diarrhea Genitourinary Symptoms: No Dysuria Musculoskeletal: No Symptoms, No Back Pain, No Neck Pain Skin: No Symptoms, No Rash Neurological: No Symptoms, No Dizziness, No Focal Weakness, No Sensory Changes Psychological: No Symptoms Endocrine: No Symptoms Hematologic/Lymphatic: No Symptoms Immunological/Allergic: No Symptoms All Other Systems: Reviewed and Negative - Past Medical History Pertinent Past Medical History: Yes Neurological History: No Pertinent History, Other ENT History: No Pertinent History Cardiac History: Arrhythmia, Other Respiratory History: COPD Endocrine Medical History: Other Musculoskeletal History: Degenerative Disk Disease GI Medical History: No Pertinent History History: Bladder Cancer, Kidney Cancer, Other Psycho-Social History: Anxiety Male Reproductive Disorders: Other Other Medical History: REPORTS GETS HEADACHES FREQUENTLY ALMOST EVERY DAY AND TAKES EXCEDRIN WHICH HELPS. PACEMAKER PLACED 02/28 DUE BRADYCARDIA. STATES AFTER PACEMAKER PLACED WAS GIVEN LIFE VEST TO WEAR FOR 3 MONTHS. HAS BEEN 4 MONTHS AND STATES WAS TO F/U WITH HEART M.D. LAST WEEK BUT OVERSLEPT SO HAS TO RESCHEDULE. PATIENT TO CLINIC TODAY WITHOUT LIFE VEST. STATES IT ONLY WENT OFF ONCE WHEN HE COULDN'T PRESS THE BUTTON SOON ENOUGH TO CANCEL SHOCK HE WAS FEELING FINE. HAD HEART CATH 2 WEEKS AGO AND WAS "GOOD". LEFT PARTIAL N EPHRECTOMY 08/2021 DUE TO CANCER. CURRENTLY TAKING KEYTRUDA INFUSIONS EVERY 6 WEEKS. - Past Surgical History Past Surgical History: Yes Neuro Surgical History: No Pertinent History Cardiac: Pacemaker Respiratory: No Pertinent History Gastrointestinal: Cholecystectomy, Hernia Repair Genitourinary: No Pertinent History Musculoskeletal: Other Male Surgical History: No Pertinent History Other Surgical History: shoulder surgery - Social History Smoking Status: Current every day smoker How long have you smoked: 30 years Exposure to second hand smoke: No Drug Use: marijuana Patient Lives Alone: No Significant Family History: no pertinent family hx - Nursing Vital Signs Nursing Vital Signs: Initial Vital Signs Temperature 98.1 F 11/21/22 14:16 Pulse Rate 82 11/21/22 14:16 Respiratory Rate 22 11/21/22 14:16 Blood Pressure 144/86 11/21/22 14:16 O2 Sat by Pulse Oximetry 97 11/21/22 14:16 Pain Scale Pain Intensity [] 10 Pain Intensity 10 - Physical Exam General Appearance: no apparent distress, alert Eye Exam: PERRL/EOMI, eyes nml inspection Ears, Nose, Throat Exam: normal ENT inspection, TMs normal, pharynx normal, moist mucous membranes Neck Exam: normal inspection, non-tender, supple, full range of motion Respiratory Exam: normal breath sounds, lungs clear, airway intact, No respiratory distress Cardiovascular Exam: regular rate/rhythm, normal heart sounds, normal peripheral pulses Gastrointestinal/Abdomen Exam: soft, normal bowel sounds, No tenderness, No mass Back Exam: normal inspection, normal range of motion, No CVA tenderness, No vertebral tenderness Extremity Exam: normal inspection, normal range of motion, pelvis stable Neurologic Exam: alert, oriented x 3, cooperative, normal mood/affect, nml cerebellar function, nml station & gait, sensation nml, No motor deficits Skin Exam: normal color, warm, dry, No rash Lymphatic Exam: No adenopathy SpO2 Interpretation: normal SpO2: 98 O2 Delivery: Room Air - Course Nursing assessment & vital signs reviewed: Yes - CT Exams Abdomen/Pelvis CT Interpretation: Tele-radiologist Report (Hepatomegaly, bilateral nephrolithiasis, diverticulosis) Chest CT Interpretation: Tele-radiologist Report (Negative PE. New mild right upper lobe airspace disease. Again emphysema and gynecomastia) Ordered Tests: Active Orders 24 hr Category Date Time Status IV Insertion STAT Care 11/21/22 14:16 Active ABDOMEN AND PELVIS W/0 CONTRAS [CT] Stat Exams 11/21/22 14:16 Completed CHEST WITH CONTRAST [CT] Stat Exams 11/21/22 19:02 Taken CBC W DIFF Stat Lab 11/21/22 14:25 Completed CMP Stat Lab 11/21/22 14:25 Completed D-DIMER QUANTITATIVE Stat Lab 11/21/22 18:30 Completed TROPONIN Q4H Lab 11/21/22 14:25 Completed TROPONIN Q4H Lab 11/21/22 17:40 Completed TROPONIN Q4H Lab 11/21/22 22:30 Ordered UA W/RFX UR CULTURE Stat Lab 11/21/22 15:08 Completed Transfer Order Routine Transfer 11/21/22 Ordered Medication Summary Generic Name Dose Route Start Last Admin Trade Name Freq PRN Reason Stop Dose Admin Ceftriaxone Sodium/Dextrose 1 g in 50 mls @ 100 mls/hr 11/21/22 22:10 Rocephin 1 Gm-D5w 50 Ml Bag IV 11/21/22 22:39 STAT STA Azithromycin 500 mg in 250 mls @ 250 mls/hr 11/21/22 22:10 Zithromax 500 Mg/ 250 Ml Nacl Premix IV 11/21/22 23:09 STAT STA Discontinued Medications Generic Name Dose Route Start Last Admin Trade Name Freq PRN Reason Stop Dose Admin Ketorolac Tromethamine 30 mg 11/21/22 14:16 11/21/22 14:30 Ketorolac Tromethamine 30 Mg/Ml Inj IV 11/21/22 14:17 30 mg STAT ONE Administration Ketorolac Tromethamine Confirm 11/21/22 14:29 Ketorolac Tromethamine 30 Mg/Ml Inj Administered 11/21/22 14:30 Dose 30 mg .ROUTE .STK-MED ONE Morphine Sulfate 4 mg 11/21/22 19:41 11/21/22 19:47 Morphine Sulfate 4 Mg/Ml Injection IV 11/21/22 19:42 4 mg STAT ONE Administration Morphine Sulfate Confirm 11/21/22 19:45 Morphine Sulfate 4 Mg/Ml Injection Administered 11/21/22 19:46 Dose 4 mg .ROUTE .STK-MED ONE Morphine Sulfate 4 mg 11/21/22 22:05 11/21/22 22:11 Morphine Sulfate 4 Mg/Ml Injection IV 11/21/22 22:06 4 mg STAT ONE Administration Morphine Sulfate Confirm 11/21/22 22:09 Morphine Sulfate 4 Mg/Ml Injection Administered 11/21/22 22:10 Dose 4 mg .ROUTE .STK-MED ONE Lab/Rad Data: Laboratory Result Diagrams 11/21/22 14:25 11/21/22 14:25 Laboratory Results 11/21/22 11/21/22 11/21/22 Range/Units 18:30 17:40 15:08 WBC (4.0-10.5) x10^3/uL RBC (4.1-5.6) x10^6/uL Hgb (12.5-18.0) g/dL Hct (42-50) % MCV (78-100) fL MCH (26-32) pg MCHC (32-36) g/dL RDW (11.5-14.0) % Plt Count (150-450) x10^3/uL MPV (7.5-11.0) fL Gran % (36.0-66.0) % Immature Gran % (Auto) (0.00-0.4) % Nucleat RBC Rel Count (0.00-0.1) % Eos # (Auto) (0-0.5) x10^3/uL Immature Gran # (Auto) (0.00-0.03) x10^3u/L Absolute Lymphs (auto) (1.0-4.6) x10^3/uL Absolute Monos (auto) (0.0-1.3) x10^3/uL Absolute Nucleated RBC (0.00-0.01) x10^3u/L Lymphocytes % (24.0-44.0) % Monocytes % (0.0-12.0) % Eosinophils % (0.00-5.0) % Basophils % (0.0-0.4) % Absolute Granulocytes (1.4-6.9) x10^3/uL Basophils # (0-0.4) x10^3/uL D-Dimer 5.98 H* (0.0-0.50) mg/L Sodium (137-145) mmol/L Potassium (3.5-5.1) mmol/L Chloride (98-107) mmol/L Carbon Dioxide (22-30) mmol/L Anion Gap (5-15) MEQ/L BUN (9-20) mg/dL Creatinine (0.66-1.25) mg/dL Estimated GFR ML/MIN Glucose (74-106) mg/dL Calcium (8.4-10.2) mg/dL Total Bilirubin (0.2-1.3) mg/dL AST (17-59) U/L ALT (0-50) U/L Alkaline Phosphatase (38-126) U/L Troponin I < 0.012 (0.000-0.034) ng/mL Serum Total Protein (6.3-8.2) g/dL Albumin (3.5-5.0) g/dL Urine Color Yellow (Yellow) Urine Appearance Clear (Clear) Urine pH 6.0 (4.6-8.0) Ur Specific [place] 1.015 (1.005-1.030) Urine Protein Negative (Negative) Urine Glucose (UA) Negative (Negative) mg/dL Urine Ketones Negative (Negative) Urine Blood Small A (Negative) Urine Nitrite Negative (Negative) Urine Bilirubin Negative (Negative) Urine Urobilinogen 1.0 A (0.2) mg/dL Ur Leukocyte Esterase Trace A (Negative) U Hyaline Cast (Auto) NONE SEEN (0-2) /LPF Urine Microscopic RBC 6-10 A (0-5) /HPF Urine Microscopic WBC 0-2 (0-5) /HPF Ur Epithelial Cells None Seen (None Seen) /HPF Urine Bacteria None Seen (None Seen) /HPF Urine Culture Reflexed NO (NO) 11/21/22 11/21/22 11/21/22 Range/Units 14:25 14:25 14:25 WBC 6.8 (4.0-10.5) x10^3/uL RBC 3.56 L (4.1-5.6) x10^6/uL Hgb 9.7 L (12.5-18.0) g/dL Hct 29.3 L (42-50) % MCV 82.3 (78-100) fL MCH 27.2 (26-32) pg MCHC 33.1 (32-36) g/dL RDW 13.1 (11.5-14.0) % Plt Count 200 (150-450) x10^3/uL MPV 9.7 (7.5-11.0) fL Gran % 52.8 (36.0-66.0) % Immature Gran % (Auto) 0.7 H (0.00-0.4) % Nucleat RBC Rel Count 0.0 (0.00-0.1) % Eos # (Auto) 1.12 H (0-0.5) x10^3/uL Immature Gran # (Auto) 0.05 H (0.00-0.03) x10^3u/L Absolute Lymphs (auto) 1.20 (1.0-4.6) x10^3/uL Absolute Monos (auto) 0.78 (0.0-1.3) x10^3/uL Absolute Nucleated RBC 0.00 (0.00-0.01) x10^3u/L Lymphocytes % 17.8 L (24.0-44.0) % Monocytes % 11.5 (0.0-12.0) % Eosinophils % 16.6 H (0.00-5.0) % Basophils % 0.6 (0.0-0.4) % Absolute Granulocytes 3.57 (1.4-6.9) x10^3/uL Basophils # 0.04 (0-0.4) x10^3/uL D-Dimer (0.0-0.50) mg/L Sodium 131 L (137-145) mmol/L Potassium 4.5 (3.5-5.1) mmol/L Chloride 97 L (98-107) mmol/L Carbon Dioxide 22 (22-30) mmol/L Anion Gap 15.9 H (5-15) MEQ/L BUN 17 (9-20) mg/dL Creatinine 1.06 (0.66-1.25) mg/dL Estimated GFR > 60.0 ML/MIN Glucose 120 H (74-106) mg/dL Calcium 9.1 (8.4-10.2) mg/dL Total Bilirubin 0.50 (0.2-1.3) mg/dL AST 43 (17-59) U/L ALT 34 (0-50) U/L Alkaline Phosphatase 103 (38-126) U/L Troponin I < 0.012 (0.000-0.034) ng/mL Serum Total Protein 7.6 (6.3-8.2) g/dL Albumin 3.7 (3.5-5.0) g/dL Urine Color (Yellow) Urine Appearance (Clear) Urine pH (4.6-8.0) Ur Specific [place] (1.005-1.030) Urine Protein (Negative) Urine Glucose (UA) (Negative) mg/dL Urine Ketones (Negative) Urine Blood (Negative) Urine Nitrite (Negative) Urine Bilirubin (Negative) Urine Urobilinogen (0.2) mg/dL Ur Leukocyte Esterase (Negative) U Hyaline Cast (Auto) (0-2) /LPF Urine Microscopic RBC (0-5) /HPF Urine Microscopic WBC (0-5) /HPF Ur Epithelial Cells (None Seen) /HPF Urine Bacteria (None Seen) /HPF Urine Culture Reflexed (NO) - Progress Progress: improved Progress Note: 62-year-old male presents to our ED for evaluation of left-sided flank left lower chest pain. Pain started yesterday. Pain is got more intense. Patient is currently receiving chemotherapy for kidney cancer. CT abdomen pelvis negative for acute pathology. CT chest negative for PE. CT chest was ordered as D-dimer was elevated. Incidental finding is right upper lobe opacity. Likely a developing pneumonia. However this is on the opposite side of patient's current pain. Patient is still a smoker. Patient is considered immunocompromise due to his current active chemotherapy and cancer. In light of this background patient will be treated accordingly. Hemoglobin observed to be 9.7. CMP essentially nonremarkable. Troponin negative x2. Urinalysis nonremarkable. 11/21/22 22:19 Complexity problems addressed is moderate acute complicated Complex of data reviewed and analyzed is extensive. Test ordered. Test reviewed. Clinical correlation made between the findings and history and physical examination. Plan of care discussed with hospitalist Dr. Stuart who accepts admission to observation. Risk of complication and or risk morbidity/mortality patient management is high. Patient requires hospitalization, higher level of care due to intractable pain. Also right upper lobe pneumonia.. Patient received morphine times two 4 mg doses for pain control Patient agrees to admission [facility] for further evaluation and treatment. Time spent to admit patient is approximately 15 minutes. Plan of care established for shared decision making. Patient voices no other complaints or concerns at this time. Portions of this note were created with voice recognition technology. There may be grammatical, spelling, punctuation or sound alike errors 11/21/22 22:23 Discussed with .: Other Will see patient in: hospital (observation) Counseled pt/family regarding: lab results, diagnosis, rad results - Departure Departure Disposition: Observation Clinical Impression: Flank pain, Hyponatremia, Microscopic hematuria, Hepatomegaly, Nephrolithiasis, Diverticulosis, Normocytic anemia, Right upper lobe pneumonia Condition: Stable Critical Care Time: No Referrals: STARR FELICIANO [Primary Care Provider] - Follow up/PCP as directed
[2022-11-21 15:42] LABS: Appearance Clear (Clear); Bacteria None Seen /HPF (None Seen); Bilirubin Negative (Negative); Blood Small (Negative); Epithelial Cells None Seen /HPF (None Seen); Glucose, Urine Negative (Negative); Hyaline Casts NONE SEEN /LPF (0-2); Ketones Negative (Negative); Leukocyte Esterase Trace (Negative); Nitrite Negative (Negative); Protein,Urine Dip Negative (Negative); Specific Gravity 1.015 (1.005-1.030); WBC 0-2 /HPF (0-5)
[2022-11-21 15:46] LABS: ADD URINE CULTURE? NO (NO)
--- NOTE | 2022-11-21 17:43 | XRAY ---
CLINICAL HISTORY:flank pain COMPARISON:None. TECHNIQUE:CT imaging was performed through the abdomen and pelvis without IV contrast. Coron al and sagittal reconstructions were aso obtained. FINDINGS: Lung bases: Degraded by respiratory motion artifact but there is no evidence of atelectatic parenchymal bands. No definite nodule or mass was seen. Liver and biliary tree: Moderate enlargement of liver measuring 19 cm. and fatty infiltration. No liver lesion is seen. Post cholecystectomy. CBD is in average diameter and no air is detected in the biliary tree. Spleen: Multiple calcific foci detected, otherwise unremarkable. Adrenal glands: Unremarkable. Pancreas: Unremarkable. Kidneys and ureters: Multiple bilateral calyceal stones with the largest on the right measuring 7 mm and largest on the left measuring 4.8 mm. No renal mass, cyst, or hydronephrosis is detected. Left leslie renal linear calcification likely post surgical procedure. Stomach and bowel: Sigmoid colonic diverticulosis seen with interval resolution of diverticulitis. Retroperitoneum: Unremarkable. Lymph nodes: No significant lymph doris enlargement. Skeletal system: No suspicious bony lesion detected. Degenerative changes are seen in spine. Bladder: No definite focal lesion detected with multiple mucosal lining outpouching. Average prostatic size with multiple calcific foci seen. IMPRESSION: 1. Moderate hepatic enlargement and fatty infiltration. 2. Multiple bilateral renal stones. Electronically Signed by: Theresa Flores MD. (11/21/2022 16:41:50 [employer])
[2022-11-21] MEDS ORDERED: MORPHINE SULFATE 4 MG INJ IV ONE ×2 (19:41→22:05)
[2022-11-21] MEDS ORDERED: MORPHINE SULFATE 4 MG INJ ONE ×2 (19:45→22:09)
[2022-11-21] MEDS ORDERED: ROCEPHIN 1 Gm-D5w 50 ml Bag** 1 G/50 ML IVPB IV STA (22:10)
[2022-11-21] MEDS ORDERED: Zithromax 500 MG/ 250 ML NaCl Premix 500 MG/250 ML IVPB IV STA (22:10)
[2022-11-21] MEDS ORDERED: ROCEPHIN 1 Gm-D5w 50 ml Bag** 1 G/50 ML IVPB IV ONE (22:25)
[2022-11-21] MEDS ORDERED: Zithromax 500 MG/ 250 ML NaCl Premix 500 MG/250 ML IVPB IV ONE (23:00)
[2022-11-22] MEDS ORDERED: PROVENTIL 2.5 MG/3 ML NEB IH PRN (02:51)
[2022-11-22] MEDS ORDERED: solu-MEDROL 40 MG, Sterile H2O 10 ml 1 ML IV SCH ×2 (02:53)
[2022-11-22] MEDS ORDERED: solu-MEDROL ONE (03:07)
[2022-11-22] MEDS ORDERED: PROVENTIL Solution 2.5 MG/0.5 ML IH ONE (03:12)
[2022-11-22] MEDS: PROVENTIL 2.5 MG/3 ML NEB IH SCH ×6 (03:19→23:45)
[2022-11-22] MEDS ORDERED: Docusate Sodium 100 MG PO PRN (03:20)
[2022-11-22] MEDS ORDERED: Zofran 4 MG/2 ML VIAL IV PRN (03:20)
[2022-11-22] MEDS ORDERED: TYLENOL 325 MG PO PRN (03:20)
[2022-11-22] MEDS: Lidoderm Patch 5% TOP SCH ×2 (03:22→10:49)
[2022-11-22] MEDS ORDERED: MORPHINE SULFATE 10 MG/ML IV PRN (03:24)
[2022-11-22] MEDS ORDERED: TORAdol 30 mg Injection IV SCH (03:30)
--- NOTE | 2022-11-22 03:31 | PCM.HP ---
History of Present Illness - Chief Complaint Chief Complaint: Left rib pain, chest pain Date: 11/22/22 History of Present Illness: This is a 62-year-old male with history of COPD, hypothyroid, partial nephrectomy for renal cancer on Keytruda, life vest & pacemaker placement for bradycardia 02/28, ?CHF. He presented to the ED tonight for evaluation of left rib pain for 1 day initial vital signs he was afebrile blood pressure 144/86, heart rate 82, sat 97% on room air. He reports hoarsness and cough productive of yellow sputum. He reports left lateral chest pain is worse with deep inspiration or palpation. He thinks pain may of started with coughing. Labs significant for WBC 6.8, hemoglobin 9.7, platelets 200, sodium 131, D-dimer 5.9, UA with small blood trace leukocyte esterase no bacteria. CT abdomen pelvis was obtained that showed moderate hepatic enlargement and fatty infiltration, multiple bilateral renal stones. CT angio chest was obtained that showed mild right upper lobe airspace disease no PE. In the ED he was given Toradol, morphine, ceftriaxone, azithromycin. - Review of Systems Eyes: No Symptoms Ears, Nose, & Throat: No Symptoms Respiratory: Cough, Short Of Breath, Wheezing Cardiac: Chest Pain Abdominal/Gastrointestinal: No Symptoms Genitourinary Symptoms: No Symptoms Musculoskeletal: No Symptoms Skin: No Symptoms Neurological: No Symptoms Psychological: No Symptoms Endocrine: No Symptoms Medications & Allergies Home Medications: Home Medication List Amiodarone HCl 1 tab PO DAILY 04/13/22 [History Confirmed 11/21/22] Fluticasone/Umeclidin/Vilanter [Trelegy Ellipta 100-62.5-25] 1 puff PO DAILY 04/13/22 [History Confirmed 11/21/22] Trazodone HCl 50 mg [Desyrel 50 mg] 1 tab PO HS 04/13/22 [History Confirmed 11/21/22] Albuterol 2.5 mg/0.5 ml [PROVENTIL Solution 2.5 MG/0.5 ML] 0.5 ml IH Q2H/PRN PRN 11/21/22 [History Confirmed 11/21/22] Albuterol 2.5 mg/3 ml Neb [Proventil 2.5 mg/3 ml Neb] 3 ml IH Q6HPRN PRN 11/21/22 [History Confirmed 11/21/22] Albuterol Sulfate [Proair Respiclick] 2 puff IH Q6HPRN PRN 11/21/22 [History Confirmed 11/21/22] Cholecalciferol (Vitamin D3) [Vitamin D3] 50 mcg PO DAILY 11/21/22 [History Confirmed 11/21/22] Fluticasone Propionate [Flonase NASAL] 1 puff NS DAILY 11/21/22 [History Confirmed 11/21/22] Folic Acid 1 mg PO DAILY 11/21/22 [History Confirmed 11/21/22] Furosemide [Lasix] 10 mg PO DAILY 11/21/22 [History Confirmed 11/21/22] Gabapentin 300 mg PO HS 11/21/22 [History Confirmed 11/21/22] Lacosamide [Vimpat] 50 mg PO BID 11/21/22 [History Confirmed 11/21/22] Levothyroxine Sodium 75 mcg PO DAILY 11/21/22 [History Confirmed 11/21/22] Megestrol Acetate 20 mg PO QID 11/21/22 [History Confirmed 11/21/22] Metoprolol Succinate 0.5 tab PO DAILY 11/21/22 [History Confirmed 11/21/22] Midodrine HCl 5 mg PO TID 11/21/22 [History Confirmed 11/21/22] Allergies/Adverse Reactions: Allergies Allergy/AdvReac Type Severity Reaction Status Date / Time No Known Drug Allergies Allergy Verified 04/13/22 16:42 - Past Medical History Past Medical History: Yes Neurological History: No Pertinent History, Other ENT History: No Pertinent History Cardiac History: Arrhythmia, Hypertension, Other Respiratory History: COPD, Pneumonia Endocrine Medical History: Other Musculoskelatal History: Arthritis, Degenerative Disk Disease GI Medical History: No Pertinent History, Diverticulosis, Hepatitis, Hernia History: Bladder Cancer, Kidney Cancer, Other Pyscho-Social History: Anxiety Male Reproductive Disorders: Other Comment: REPORTS GETS HEADACHES FREQUENTLY ALMOST EVERY DAY AND TAKES EXCEDRIN WHICH HELPS. PACEMAKER PLACED 02/28 DUE BRADYCARDIA. STATES AFTER PACEMAKER PLACED WAS GIVEN LIFE VEST TO WEAR FOR 3 MONTHS. HAS BEEN 4 MONTHS AND STATES WAS TO F/U WITH HEART M.D. LAST WEEK BUT OVERSLEPT SO HAS TO RESCHEDULE. PATIENT TO CLINIC TODAY WITHOUT LIFE VEST. STATES IT ONLY WENT OFF ONCE WHEN HE COULDN'T PRESS THE BUTTON SOON ENOUGH TO CANCEL SHOCK HE WAS FEELING FINE. HAD HEART CATH 2 WEEKS AGO AND WAS "GOOD". LEFT PARTIAL NEPHRECTOMY 08/2021 DUE TO CANCER. CURRENTLY TAKING KEYTRUDA INFUSIONS EVERY 6 WEEKS. - Past Surgical History Past Surgical History: Yes Neuro Surgical History: No Pertinent History Cardiac History: Pacemaker Respiratory Surgery: No Pertinent History GI Surgical History: Cholecystectomy, Hernia Repair Genitourinary Surgical Hx: No Pertinent History Musculskeletal Surgical Hx: Other Male Surgical History: No Pertinent History Other Surgical History: shoulder surgery - Social History Smoking Status: Current every day smoker How long have you smoked: 40 years Exposure to second hand smoke: Yes Alcohol: None Drug Use: marijuana Significant Family History: no pertinent family hx - Physical Exam Vital Signs: Vital Signs - 24 hr Temp Pulse Resp BP BP Pulse Ox 11/22/22 03:07 79 20 99 11/21/22 23:47 97.1 F 75 26 H 132/83 98 11/21/22 23:00 87 17 107/82 97 11/21/22 22:55 75 21 105/74 98 11/21/22 22:23 98 11/21/22 22:01 72 17 112/72 98 11/21/22 21:30 74 20 134/72 99 11/21/22 21:00 69 17 113/68 98 11/21/22 20:00 70 19 109/69 97 11/21/22 19:30 72 17 123/76 97 11/21/22 19:00 76 26 H 143/108 98 11/21/22 18:54 76 22 139/71 98 11/21/22 18:30 73 29 H 113/76 100 11/21/22 18:00 70 22 127/70 100 11/21/22 17:30 72 18 127/70 97 11/21/22 17:00 75 19 114/71 98 11/21/22 16:30 75 14 99/73 97 11/21/22 16:00 75 19 128/65 97 11/21/22 15:30 73 17 127/76 98 11/21/22 15:00 76 19 123/65 98 11/21/22 14:34 80 22 146/97 94 L 11/21/22 14:30 84 22 141/81 97 11/21/22 14:16 98.1 F 82 22 144/86 97 General Appearance: no apparent distress Neurologic Exam: alert, oriented x 3 Eye Exam: PERRL/EOMI Ears, Nose, Throat Exam: normal ENT inspection Neck Exam: normal inspection Respiratory Exam: chest tenderness, crackles/rales, wheezing Cardiovascular Exam: regular rate/rhythm Extremity Exam: normal inspection, No pedal edema Results - Labs Lab/Micro Results: Lab Results-Last 24 Hours 11/21/22 11/21/22 11/21/22 Range/Units 14:25 14:25 14:25 WBC 6.8 (4.0-10.5) x10^3/uL RBC 3.56 L (4.1-5.6) x10^6/uL Hgb 9.7 L (12.5-18.0) g/dL Hct 29.3 L (42-50) % MCV 82.3 (78-100) fL MCH 27.2 (26-32) pg MCHC 33.1 (32-36) g/dL RDW 13.1 (11.5-14.0) % Plt Count 200 (150-450) x10^3/uL MPV 9.7 (7.5-11.0) fL Gran % 52.8 (36.0-66.0) % Immature Gran % (Auto) 0.7 H (0.00-0.4) % Nucleat RBC Rel Count 0.0 (0.00-0.1) % Eos # (Auto) 1.12 H (0-0.5) x10^3/uL Immature Gran # (Auto) 0.05 H (0.00-0.03) x10^3u/L Absolute Lymphs (auto) 1.20 (1.0-4.6) x10^3/uL Absolute Monos (auto) 0.78 (0.0-1.3) x10^3/uL Absolute Nucleated RBC 0.00 (0.00-0.01) x10^3u/L Lymphocytes % 17.8 L (24.0-44.0) % Monocytes % 11.5 (0.0-12.0) % Eosinophils % 16.6 H (0.00-5.0) % Basophils % 0.6 (0.0-0.4) % Absolute Granulocytes 3.57 (1.4-6.9) x10^3/uL Basophils # 0.04 (0-0.4) x10^3/uL D-Dimer (0.0-0.50) mg/L Sodium 131 L (137-145) mmol/L Potassium 4.5 (3.5-5.1) mmol/L Chloride 97 L (98-107) mmol/L Carbon Dioxide 22 (22-30) mmol/L Anion Gap 15.9 H (5-15) MEQ/L BUN 17 (9-20) mg/dL Creatinine 1.06 (0.66-1.25) mg/dL Estimated GFR > 60.0 ML/MIN Glucose 120 H (74-106) mg/dL Calcium 9.1 (8.4-10.2) mg/dL Total Bilirubin 0.50 (0.2-1.3) mg/dL AST 43 (17-59) U/L ALT 34 (0-50) U/L Alkaline Phosphatase 103 (38-126) U/L Troponin I < 0.012 (0.000-0.034) ng/mL Serum Total Protein 7.6 (6.3-8.2) g/dL Albumin 3.7 (3.5-5.0) g/dL Urine Color (Yellow) Urine Appearance (Clear) Urine pH (4.6-8.0) Ur Specific [place] (1.005-1.030) Urine Protein (Negative) Urine Glucose (UA) (Negative) mg/dL Urine Ketones (Negative) Urine Blood (Negative) Urine Nitrite (Negative) Urine Bilirubin (Negative) Urine Urobilinogen (0.2) mg/dL Ur Leukocyte Esterase (Negative) U Hyaline Cast (Auto) (0-2) /LPF Urine Microscopic RBC (0-5) /HPF Urine Microscopic WBC (0-5) /HPF Ur Epithelial Cells (None Seen) /HPF Urine Bacteria (None Seen) /HPF Urine Culture Reflexed (NO) 11/21/22 11/21/22 11/21/22 Range/Units 15:08 17:40 18:30 WBC (4.0-10.5) x10^3/uL RBC (4.1-5.6) x10^6/uL Hgb (12.5-18.0) g/dL Hct (42-50) % MCV (78-100) fL MCH (26-32) pg MCHC (32-36) g/dL RDW (11.5-14.0) % Plt Count (150-450) x10^3/uL MPV (7.5-11.0) fL Gran % (36.0-66.0) % Immature Gran % (Auto) (0.00-0.4) % Nucleat RBC Rel Count (0.00-0.1) % Eos # (Auto) (0-0.5) x10^3/uL Immature Gran # (Auto) (0.00-0.03) x10^3u/L Absolute Lymphs (auto) (1.0-4.6) x10^3/uL Absolute Monos (auto) (0.0-1.3) x10^3/uL Absolute Nucleated RBC (0.00-0.01) x10^3u/L Lymphocytes % (24.0-44.0) % Monocytes % (0.0-12.0) % Eosinophils % (0.00-5.0) % Basophils % (0.0-0.4) % Absolute Granulocytes (1.4-6.9) x10^3/uL Basophils # (0-0.4) x10^3/uL D-Dimer 5.98 H* (0.0-0.50) mg/L Sodium (137-145) mmol/L Potassium (3.5-5.1) mmol/L Chloride (98-107) mmol/L Carbon Dioxide (22-30) mmol/L Anion Gap (5-15) MEQ/L BUN (9-20) mg/dL Creatinine (0.66-1.25) mg/dL Estimated GFR ML/MIN Glucose (74-106) mg/dL Calcium (8.4-10.2) mg/dL Total Bilirubin (0.2-1.3) mg/dL AST (17-59) U/L ALT (0-50) U/L Alkaline Phosphatase (38-126) U/L Troponin I < 0.012 (0.000-0.034) ng/mL Serum Total Protein (6.3-8.2) g/dL Albumin (3.5-5.0) g/dL Urine Color Yellow (Yellow) Urine Appearance Clear (Clear) Urine pH 6.0 (4.6-8.0) Ur Specific [place] 1.015 (1.005-1.030) Urine Protein Negative (Negative) Urine Glucose (UA) Negative (Negative) mg/dL Urine Ketones Negative (Negative) Urine Blood Small A (Negative) Urine Nitrite Negative (Negative) Urine Bilirubin Negative (Negative) Urine Urobilinogen 1.0 A (0.2) mg/dL Ur Leukocyte Esterase Trace A (Negative) U Hyaline Cast (Auto) NONE SEEN (0-2) /LPF Urine Microscopic RBC 6-10 A (0-5) /HPF Urine Microscopic WBC 0-2 (0-5) /HPF Ur Epithelial Cells None Seen (None Seen) /HPF Urine Bacteria None Seen (None Seen) /HPF Urine Culture Reflexed NO (NO) 11/21/22 Range/Units 22:39 WBC (4.0-10.5) x10^3/uL RBC (4.1-5.6) x10^6/uL Hgb (12.5-18.0) g/dL Hct (42-50) % MCV (78-100) fL MCH (26-32) pg MCHC (32-36) g/dL RDW (11.5-14.0) % Plt Count (150-450) x10^3/uL MPV (7.5-11.0) fL Gran % (36.0-66.0) % Immature Gran % (Auto) (0.00-0.4) % Nucleat RBC Rel Count (0.00-0.1) % Eos # (Auto) (0-0.5) x10^3/uL Immature Gran # (Auto) (0.00-0.03) x10^3u/L Absolute Lymphs (auto) (1.0-4.6) x10^3/uL Absolute Monos (auto) (0.0-1.3) x10^3/uL Absolute Nucleated RBC (0.00-0.01) x10^3u/L Lymphocytes % (24.0-44.0) % Monocytes % (0.0-12.0) % Eosinophils % (0.00-5.0) % Basophils % (0.0-0.4) % Absolute Granulocytes (1.4-6.9) x10^3/uL Basophils # (0-0.4) x10^3/uL D-Dimer (0.0-0.50) mg/L Sodium (137-145) mmol/L Potassium (3.5-5.1) mmol/L Chloride (98-107) mmol/L Carbon Dioxide (22-30) mmol/L Anion Gap (5-15) MEQ/L BUN (9-20) mg/dL Creatinine (0.66-1.25) mg/dL Estimated GFR ML/MIN Glucose (74-106) mg/dL Calcium (8.4-10.2) mg/dL Total Bilirubin (0.2-1.3) mg/dL AST (17-59) U/L ALT (0-50) U/L Alkaline Phosphatase (38-126) U/L Troponin I < 0.012 (0.000-0.034) ng/mL Serum Total Protein (6.3-8.2) g/dL Albumin (3.5-5.0) g/dL Urine Color (Yellow) Urine Appearance (Clear) Urine pH (4.6-8.0) Ur Specific [place] (1.005-1.030) Urine Protein (Negative) Urine Glucose (UA) (Negative) mg/dL Urine Ketones (Negative) Urine Blood (Negative) Urine Nitrite (Negative) Urine Bilirubin (Negative) Urine Urobilinogen (0.2) mg/dL Ur Leukocyte Esterase (Negative) U Hyaline Cast (Auto) (0-2) /LPF Urine Microscopic RBC (0-5) /HPF Urine Microscopic WBC (0-5) /HPF Ur Epithelial Cells (None Seen) /HPF Urine Bacteria (None Seen) /HPF Urine Culture Reflexed (NO) - Radiology Impressions Radiology Exams & Impressions: Radiology Procedures Category Date Time Status ABDOMEN AND PELVIS W/0 CONTRAS [CT] Stat Exams 11/21/22 14:16 Completed CHEST WITH CONTRAST [CT] Stat Exams 11/21/22 19:02 Taken - Other Procedures and Tests Respiratory Therapy 11/22/22 03:06 Respiratory Therapy Assessment DAILY Assessment/Plan (1) Right upper lobe pneumonia Current Visit: Yes Status: Acute Assessment & Plan: ASSESSMENT #Pleuritic chest pain #Possible UTI #Nephrolithiasis #Right upper lobe pneumonia #Renal cell carcinoma on Keytruda #History of COPD, with exacerbation #?Afib #?CHF #History of hypothyroid PLAN -Solumedrol, scheduled duonebs -Scheduled Toradol x4 doses, Lidocaine patch and PRN Morphine -Follow urine culture. Obtain sputum cx -Ceftriaxone and Azithromycin -Pain control -Continue home meds for chronic medical issues Prophylaxis: Lovenox Entire encounter performed via telemedicine Code(s): J18.9 - PNEUMONIA, UNSPECIFIED ORGANISM Telemedicine Encounter - Telemedicine Encounter Telemedicine Encounter: The entirety of this encounter was performed via Telemedicine"
[2022-11-22 05:20] LABS: Absolute Neutrophil Ct (ANC) 3.66 x10^3/uL (1.4-6.9); BASOPHIL % 0.5 % (0.0-0.4); Basophil (Absolute #) 0.03 x10^3/uL (0-0.4); Eosinophil % 15.5 % (0.00-5.0); Eosinophil (Absolute #) 0.89 x10^3/uL (0-0.5); Hematocrit 29.2 % (42-50); Hemoglobin 9.5 g/dL (12.5-18.0); IMMATURE GRAN # 0.05 x10^3u/L (0.00-0.03); IMMATURE GRAN % 0.9 % (0.00-0.4); Lymphocyte (Absolute #) 0.65 x10^3/uL (1.0-4.6); Lymphocytes % 11.3 % (24.0-44.0); Mean Corpuscular Hgb Concent. 32.5 g/dL (32-36); Mean Platelet Volume 9.9 fL (7.5-11.0); Monocyte (Absolute #) 0.46 x10^3/uL (0.0-1.3); Neutrophil % 63.8 % (36.0-66.0); Platelet Count 224 x10^3/uL (150-450); Red Blood Count 3.52 x10^6/uL (4.1-5.6); Red Cell Distribution Width 13.2 % (11.5-14.0); White Blood Count 5.7 x10^3/uL (4.0-10.5)
[2022-11-22 05:29] LABS: ALBUMIN 3.6 g/dL (3.5-5.0); ANION GAP 14.3 MEQ/L (5-15); BILIRUBIN,TOTAL 0.5 mg/dL (0.2-1.3); Calcium 9.1 mg/dL (8.4-10.2); Creatinine 1 1.34 mg/dL (0.66-1.25); EST GLOMERULAR FILTRATION RATE 57.2 ML/MIN; Potassium 4.3 mmol/L (3.5-5.1); Total Protein 7.3 g/dL (6.3-8.2)
--- NOTE | 2022-11-22 09:07 | XRAY ---
Indication: Pain. Elevated d-dimer. Multiple contiguous axial images obtained through the chest using 80 cc Isovue 370 contrast and PE protocol. Comparison: October 24, 2021 Good opacification of the pulmonary arteries to include the lobar and segmental branches. No pulmonary embolus. Heart not enlarged with new left dual-lead pacemaker. Aorta is normal in course and caliber. Stable tiny right superhilar calcified nodes. No pathologic mediastinal/hilar lymphadenopathy. Lungs demonstrates new small focus posterior right upper lobe interstitial alveolar opacities. New peripheral subsegmental atelectasis/scarring in both lower lobes, right greater than left. Elsewhere stable mild pulmonary emphysema. No consolidation or large effusion. Bony thorax intact again with mild degenerative changes throughout the spine, old sternal fracture, and old right 11 rib fracture. Again incidental bilateral gynecomastia. CT abdomen/pelvis reported separately. Impression: 1. Negative pulmonary embolus. 2. New right upper lobe interstitial alveolar opacities. Rule out pneumonia. 3. Again chronic findings including pulmonary emphysema, bilateral gynecomastia, chronic bony findings, and old granulomatous disease.
[2022-11-22] MEDS: VITAMIN D PO SCH (09:59)
[2022-11-22] MEDS: Toprol-Xl 25MG Tablets PO SCH (09:59)
[2022-11-22] MEDS: LASIX 20 MG PO SCH (09:59)
[2022-11-22] MEDS: Cordarone 200 MG PO SCH (10:00)
[2022-11-22] MEDS ORDERED: NON-FORMULARY ITEM (Fluticasone/Umeclidin/Vilanter [Trelegy Ellipta 100-62.5-25] 1 EACH Bl PO SCH (10:00)
[2022-11-22] MEDS ORDERED: MEGESTROL ACETATE 20 MG PO SCH (10:00)
[2022-11-22] MEDS: SYNTHROID 75 MCG PO SCH (10:00)
[2022-11-22] MEDS ORDERED: NON-FORMULARY ITEM (Cholecalciferol (Vitamin D3) [Vitamin D3] 50 MCG Capsule) PO SCH (10:00)
[2022-11-22] MEDS: FOLATE 1 MG PO SCH (10:00)
[2022-11-22] MEDS ORDERED: NON-FORMULARY ITEM (Metoprolol Succinate 25 MG Tab.Er.24h) PO SCH (10:00)
[2022-11-22] MEDS: PROAMATINE PO SCH ×3 (10:01→22:04)
[2022-11-22] MEDS: Flonase NASAL NS SCH (10:01)
[2022-11-22] MEDS: solu-MEDROL 40 MG, Sterile H2O 10 ml 1 ML IV SCH ×4 (10:10→22:04)
[2022-11-22] MEDS: ENOXAPARIN SODIUM SQ SCH (10:48)
[2022-11-22] MEDS: Megace Susp PO SCH ×4 (10:49→22:03)
[2022-11-22] MEDS: PATIENT OWN MEDICATION IH SCH (11:17)
[2022-11-22] MEDS: MORPHINE SULFATE 4 MG INJ IV PRN ×2 (14:39→22:03)
[2022-11-22] MEDS: NICOTINE PATCH 7MG TD SCH (15:13)
[2022-11-22] MEDS ORDERED: NEURONTIN PO SCH (22:00)
[2022-11-22] MEDS ORDERED: ROCEPHIN 1 Gm-D5w 50 ml Bag** 1 G/50 ML IVPB IV SCH (22:00)
[2022-11-22] MEDS ORDERED: Zithromax 500 MG/ 250 ML NaCl Premix 500 MG/250 ML IVPB IV SCH (22:00)
[2022-11-22] MEDS ORDERED: DESYREL 50 MG PO SCH (22:00)
[2022-11-23] MEDS: PROVENTIL 2.5 MG/3 ML NEB IH SCH ×3 (02:50→10:41)
[2022-11-23] MEDS: PATIENT OWN MEDICATION IH SCH (06:55)
[2022-11-23 08:03] VITALS: RESP 19
[2022-11-23] MEDS: Flonase NASAL NS SCH (09:15)
[2022-11-23] MEDS: ENOXAPARIN SODIUM SQ SCH (09:15)
[2022-11-23] MEDS: Cordarone 200 MG PO SCH (09:15)
[2022-11-23] MEDS: LASIX 20 MG PO SCH (09:16)
[2022-11-23] MEDS: FOLATE 1 MG PO SCH (09:16)
[2022-11-23] MEDS: Lidoderm Patch 5% TOP SCH (09:17)
[2022-11-23] MEDS: Megace Susp PO SCH (09:18)
[2022-11-23] MEDS: PROAMATINE PO SCH (09:19)
[2022-11-23] MEDS: NICOTINE PATCH 7MG TD SCH (09:19)
[2022-11-23] MEDS: SYNTHROID 75 MCG PO SCH (09:19)
[2022-11-23] MEDS: VITAMIN D PO SCH (09:20)
[2022-11-23] MEDS: Toprol-Xl 25MG Tablets PO SCH (09:20)
[2022-11-23] MEDS: solu-MEDROL 40 MG, Sterile H2O 10 ml 1 ML IV SCH ×2 (09:21)
[2022-11-23 09:48] LABS: Hemoglobin 8.9 g/dL (12.5-18.0); Mean Cell Volume 83.1 fL (78-100); Mean Corpuscular Hemoglobin 27.4 pg (26-32); Mean Platelet Volume 9.9 fL (7.5-11.0); Platelet Count 225 x10^3/uL (150-450); Red Blood Count 3.25 x10^6/uL (4.1-5.6); Red Cell Distribution Width 13.1 % (11.5-14.0); White Blood Count 10.1 x10^3/uL (4.0-10.5)
[2022-11-23] MEDS ORDERED: NICOTINE PATCH 7MG TD SCH (10:00)
[2022-11-23 10:33] LABS: ALBUMIN 3.6 g/dL (3.5-5.0); ALKALINE PHOSPHATASE 97 U/L (38-126); ANION GAP 17.9 MEQ/L (5-15); BLOOD UREA NITROGEN 23 mg/dL (9-20); CHLORIDE 102 mmol/L (98-107); Calcium 8.8 mg/dL (8.4-10.2); Carbon Dioxide 21 mmol/L (22-30); EST GLOMERULAR FILTRATION RATE > 60.0 ML/MIN; Glucose 202 mg/dL (74-106); SGOT/AST 30 U/L (17-59); SGPT/ALT 32 U/L (0-50); SODIUM 135 mmol/L (137-145); Total Protein 7.4 g/dL (6.3-8.2)
--- NOTE | 2022-11-23 11:29 | PCM.DS ---
Discharge Summary Date of Admission: 11/21/22 23:47 Date of Discharge: 11/23/22 Admitting Physician: VERONICA ZUÑIGA MD Primary Care Provider: STARR FELICIANO Allergies Allergies No Known Drug Allergies Allergy (Verified 04/13/22 16:42) Hospital Summary - Hospital Course Hospital Course: This is a 62-year-old male with history of COPD, hypothyroid, partial nephrectomy for renal cancer on Keytruda, life vest & pacemaker placement for bradycardia 02/28, ?CHF. He presented to the ED for evaluation of left rib pain for 1 day. He reported hoarsness and cough productive of yellow sputum. He reported left lateral chest pain worse with deep inspiration or palpation. He thinks pain may of started with coughing. CT abdomen pelvis was obtained that showed moderate hepatic enlargement and fatty infiltration, multiple bilateral renal stones. CT angio chest was obtained that showed mild right upper lobe airspace disease no PE. IP he has been getting morphine, ceftriaxone, azithromycin and steriods. Pt is not requiring oxygen and is feeling much better. He feels he is ready to d/c today. Denies any further c/o at this time. - Vitals & Intake/Output Vital Signs: Vital Signs Temperature 98.6 F 11/23/22 08:00 Pulse Rate 85 11/23/22 08:00 Respiratory Rate 19 11/23/22 08:00 Blood Pressure 117/68 11/23/22 08:00 O2 Sat by Pulse Oximetry 95 11/23/22 08:00 Intake & Output: Intake & Output 11/20/22 11/21/22 11/22/22 11/23/22 11:59 11:59 11:59 11:59 Intake Total 1160 2380 Output Total 760 700 Balance 400 1680 Weight 73.9 kg - Lab Result Diagrams: 11/23/22 09:21 11/23/22 09:21 Lab Results-Last 24 Hrs: Lab Results-Last 24 Hours 11/23/22 11/23/22 Range/Units 09:21 09:21 WBC 10.1 (4.0-10.5) x10^3/uL RBC 3.25 L (4.1-5.6) x10^6/uL Hgb 8.9 L (12.5-18.0) g/dL Hct 27.0 L (42-50) % MCV 83.1 (78-100) fL MCH 27.4 (26-32) pg MCHC 33.0 (32-36) g/dL RDW 13.1 (11.5-14.0) % Plt Count 225 (150-450) x10^3/uL MPV 9.9 (7.5-11.0) fL Sodium 135 L (137-145) mmol/L Potassium 5.0 (3.5-5.1) mmol/L Chloride 102 (98-107) mmol/L Carbon Dioxide 21 L (22-30) mmol/L Anion Gap 17.9 H (5-15) MEQ/L BUN 23 H (9-20) mg/dL Creatinine 1.10 (0.66-1.25) mg/dL Estimated GFR > 60.0 ML/MIN Glucose 202 H (74-106) mg/dL Calcium 8.8 (8.4-10.2) mg/dL Total Bilirubin 0.30 (0.2-1.3) mg/dL AST 30 (17-59) U/L ALT 32 (0-50) U/L Alkaline Phosphatase 97 (38-126) U/L Serum Total Protein 7.4 (6.3-8.2) g/dL Albumin 3.6 (3.5-5.0) g/dL - Radiology Exams Ordered Rad Exams-Entire Visit: Radiology Procedures Category Date Time Status ABDOMEN AND PELVIS W/0 CONTRAS [CT] Stat Exams 11/21/22 14:16 Completed CHEST WITH CONTRAST [CT] Stat Exams 11/21/22 19:02 Completed - Procedures and Test Procedures and Tests throughout Hospitalization: Therapy Orders & Screens 11/22/22 03:06 Respiratory Therapy Assessment DAILY Comment: Diagnosis: Left rib pain, chest pain 11/22/22 11:42 Respiratory MDI UD Comment: Diagnosis: Left rib pain, chest pain Discharge Exam General Appearance: no apparent distress, alert Neurologic Exam: alert, oriented x 3, cooperative, normal mood/affect, nml cerebellar function, sensation nml, No motor deficits Eye Exam: PERRL, EOMI, eyes nml inspection Ears, Nose, Throat Exam: normal ENT inspection, pharynx normal, moist mucous membranes Neck Exam: normal inspection, non-tender, supple, full range of motion Respiratory Exam: normal breath sounds, lungs clear, No respiratory distress Cardiovascular Exam: regular rate/rhythm, normal heart sounds Gastrointestinal/Abdomen Exam: soft, No tenderness, No mass Male Genitalia Exam: deferred Rectal Exam: deferred Back Exam: normal inspection, normal range of motion, No CVA tenderness, No vertebral tenderness Extremity Exam: normal inspection, normal range of motion Skin Exam: normal color, warm, dry Final Diagnosis/Problem List - Final Discharge Diagnosis/Problem (1) Flank pain Current Visit: Yes Status: Acute Assessment & Plan: - resolved Code(s): R10.9 - UNSPECIFIED ABDOMINAL PAIN (2) Hepatomegaly Current Visit: Yes Status: Chronic Assessment & Plan: - f/u with PCP - most likly medication related Code(s): R16.0 - HEPATOMEGALY, NOT ELSEWHERE CLASSIFIED (3) Nephrolithiasis Current Visit: Yes Status: Acute Assessment & Plan: - pain resolved - as seen on CT- no obstruction (4) Right upper lobe pneumonia Current Visit: Yes Status: Acute Assessment & Plan: -ceftriaxone, azithromycin, steroids - RT eval and treat - Room air - sxs improved - D/C plan doxy . Code(s): J18.9 - PNEUMONIA, UNSPECIFIED ORGANISM (5) COPD exacerbation Current Visit: Yes Status: Acute Assessment & Plan: - RT eval and tx - Room air - sxs improved - will send home on adv and steriods Code(s): J44.1 - CHRONIC OBSTRUCTIVE PULMONARY DISEASE W (ACUTE) EXACERBATION - Discharge Discharge Date: 11/23/22 Disposition: Home, Self-Care Condition: Stable Prescriptions: Continue Fluticasone/Umeclidin/Vilanter [Trelegy Ellipta 100-62.5-25] 1 puff PO DAILY Trazodone HCl 50 mg [Desyrel 50 mg] 1 tab PO HS Amiodarone HCl 1 tab PO DAILY Metoprolol Succinate 0.5 tab PO DAILY Megestrol Acetate 20 mg PO QID Levothyroxine Sodium 75 mcg PO DAILY Lacosamide [Vimpat] 50 mg PO BID Gabapentin 300 mg PO HS Furosemide [Lasix] 10 mg PO DAILY Folic Acid 1 mg PO DAILY Fluticasone Propionate [Flonase NASAL] 1 puff NS DAILY Cholecalciferol (Vitamin D3) [Vitamin D3] 50 mcg PO DAILY Albuterol Sulfate [Proair Respiclick] 2 puff IH Q6HPRN PRN PRN Reason: Shortness Of Breath Albuterol 2.5 mg/3 ml Neb [Proventil 2.5 mg/3 ml Neb] 3 ml IH Q6HPRN PRN PRN Reason: Shortness Of Breath Albuterol 2.5 mg/0.5 ml [PROVENTIL Solution 2.5 MG/0.5 ML] 0.5 ml IH Q2H/PRN PRN PRN Reason: Shortness Of Breath Midodrine HCl 5 mg PO TID Instructions: Pneumonia in adults Forms: Discharge Instructions
[2022-11-23 12:00] VITALS: BP 125/75; PULSE 82; TEMP 97.7; O2SAT 93
== END 2022-11-23 12:11 | disposition home or self-care (01) ==
LOC: ED 13:58 → MED SURG 23:47
PROVIDERS: ADMIT Internal Medicine; ATTEND Internal Medicine
DX: J18.9 Pneumonia, unspecified organism (principal); R10.9 Unspecified abdominal pain; R16.0 Hepatomegaly, not elsewhere classified; N20.0 Calculus of kidney; J44.1 Chronic obstructive pulmonary disease with (acute) exacerbation; E03.9 Hypothyroidism, unspecified; C64.9 Malignant neoplasm of unspecified kidney, except renal pelvis; R07.9 Chest pain, unspecified; I10 Essential (primary) hypertension; Z79.899 Other long term (current) drug therapy; Z20.828 Contact with and (suspected) exposure to other viral communicable diseases; Z72.0 Tobacco use; Z85.51 Personal history of malignant neoplasm of bladder
CPT/HCPCS: 36000; 36415; 71260; 74176; 80053; 81001; 84484; 85025; 85027; 85379; 94640; 94760; 96365; 96367; 96374; 96375; 96376; 99285; G0378; J0456; J0696; J1650; J1885; J2270; J2920; J7609; A9270-GY

== ENCOUNTER 2023-10-15 17:11 | Emergency (ER) | payer MEDICARE ==
[2023-10-15 17:20] VITALS: TEMP 97
--- NOTE | 2023-10-15 17:42 | ERPHSYRPT ---
- History of Present Illness Time Seen by Provider: 10/15/23 17:41 Source: patient, family Exam Limitations: clinical condition Patient Subjective Stated Complaint: pt here for bleeding to roof mouth for a couple hours after taking dentures out Triage Nursing Assessment: pt alert, anxious, refuses to give more hx, yelled at staff for asking questions. pt has bleeding to rag and on mouth Physician History: This is a 63-year-old white male patient who has arrhythmia issues and a pacemaker in place and is on Xarelto anticoagulation therapy. Approximately 2 hours prior to arrival to the emergency department, the patient took his dentures out and patient began bleeding from the upper gumline. This has happened in the past but it always stopped with simple pressure. Today it did not stop so he presented to the emergency department. Patient is a daily smoker of cigarettes. Patient has a history of hypothyroidism, COPD, CHF, prostate issues, hypertension and anxiety issues. Timing/Duration: today Severity: mild Associated Symptoms: denies symptoms Allergies/Adverse Reactions: No Known Drug Allergies Allergy (Verified 10/15/23 17:12) Home Medications: Trazodone HCl 50 mg [Desyrel 50 mg] 1 tab PO HS 04/13/22 [History] Albuterol 2.5 mg/0.5 ml [PROVENTIL Solution 2.5 MG/0.5 ML] 0.5 ml IH Q2H/PRN PRN 11/21/22 [History] Albuterol 2.5 mg/3 ml Neb [Proventil 2.5 mg/3 ml Neb] 3 ml IH Q6HPRN PRN 11/21/22 [History] Albuterol Sulfate [Proair Respiclick] 2 puff IH Q6HPRN PRN 11/21/22 [History] Cholecalciferol (Vitamin D3) [Vitamin D3] 50 mcg PO DAILY 11/21/22 [History] Fluticasone Propionate [Flonase NASAL] 1 puff NS DAILY 11/21/22 [History] Folic Acid 1 mg PO DAILY 11/21/22 [History] Gabapentin 300 mg PO HS 11/21/22 [History] Lacosamide [Vimpat] 50 mg PO BID 11/21/22 [History] Levothyroxine Sodium 75 mcg PO DAILY 11/21/22 [History] Sacubitril/Valsartan [Entresto 49 mg-51 mg Tablet] 1 tab PO DAILY 07/10/23 [History] Tamsulosin HCl 0.4 mg [Flomax 0.4 MG] 0.4 mg PO UD 07/10/23 [History] Hx Tetanus, Diphtheria Vaccination/Date Given: Yes Hx Influenza Vaccination/Date Given: No Hx Pneumococcal Vaccination/Date Given: No Immunizations Up to Date: Yes Travel Risk - International Travel Have you traveled outside of the country in past 3 weeks: No - Emerging Infectious Disease Are you exhibiting symptoms associated with any current EIDs: No - Review of Systems Constitutional: No Symptoms Eyes: No Symptoms Ears, Nose, & Throat: Other (Blood clots at upper gumline. Currently, no active bleeding) Respiratory: No Symptoms Cardiac: No Symptoms Abdominal/Gastrointestinal: No Symptoms Genitourinary Symptoms: No Symptoms Musculoskeletal: No Symptoms Skin: No Symptoms Neurological: No Symptoms Psychological: No Symptoms Endocrine: No Symptoms Hematologic/Lymphatic: No Symptoms Immunological/Allergic: No Symptoms All Other Systems: Reviewed and Negative - Past Medical History Pertinent Past Medical History: Yes Neurological History: No Pertinent History, Other ENT History: No Pertinent History Cardiac History: Arrhythmia, Hypertension, Other Respiratory History: COPD, Pneumonia Endocrine Medical History: Other Musculoskeletal History: Arthritis, Degenerative Disk Disease GI Medical History: No Pertinent History, Diverticulosis, Hepatitis, Hernia History: Bladder Cancer, Kidney Cancer, Other Psycho-Social History: Anxiety Male Reproductive Disorders: Other Other Medical History: REPORTS GETS HEADACHES FREQUENTLY ALMOST EVERY DAY AND TAKES EXCEDRIN WHICH HELPS. PACEMAKER PLACED 02/28 DUE BRADYCARDIA. LEFT PARTIAL NEPHRECTOMY 08/2021 DUE TO CANCER. CURRENTLY TAKING KEYTRUDA INFUSIONS EVERY 6 WEEKS. - Past Surgical History Past Surgical History: Yes Neuro Surgical History: No Pertinent History Cardiac: Pacemaker Respiratory: No Pertinent History Gastrointestinal: Cholecystectomy, Hernia Repair Genitourinary: No Pertinent History Musculoskeletal: Other Male Surgical History: No Pertinent History Other Surgical History: shoulder surgery Significant Family History: no pertinent family hx - Social History Smoking Status: Current every day smoker How long have you smoked: 40 years Exposure to second hand smoke: Yes Drug Use: marijuana Patient Lives Alone: No - Social Determinants of Health Will the patient participate in the screening: Unable to obtain - Nursing Vital Signs Nursing Vital Signs: Initial Vital Signs Pulse Rate 68 07/08/24 17:14 Respiratory Rate 17 10/15/23 17:14 Blood Pressure 99/70 10/15/23 17:14 O2 Sat by Pulse Oximetry 95 10/15/23 17:14 Pain Scale Pain Intensity 3 - Physical Exam General Appearance: no apparent distress, alert, anxiety Eye Exam: PERRL/EOMI, eyes nml inspection Ears, Nose, Throat Exam: moist mucous membranes, other (Upper gumline area of small ulceration has stopped bleeding. There are clots in the region.) Neck Exam: normal inspection, non-tender, supple, full range of motion Respiratory Exam: airway intact, No chest tenderness, No respiratory distress Gastrointestinal/Abdomen Exam: No tenderness Rectal Exam: not done Back Exam: normal inspection, normal range of motion, No CVA tenderness, No vertebral tenderness Extremity Exam: normal inspection, normal range of motion, pelvis stable Neurologic Exam: alert, oriented x 3, cooperative, petroleum refinery operator II-XII nml as tested, nml cerebellar function, nml station & gait, sensation nml Skin Exam: normal color, warm, dry Lymphatic Exam: No adenopathy SpO2 Interpretation: normal SpO2: 98 O2 Delivery: Room Air - Course Nursing assessment & vital signs reviewed: Yes Ordered Tests: Active Orders 24 hr Category Date Time Status BMP Stat Lab 10/15/23 17:50 Completed CBC W DIFF Stat Lab 10/15/23 17:50 Completed PROTIME WITH INR Stat Lab 10/15/23 17:50 Completed Lab/Rad Data: Laboratory Result Diagrams 10/15/23 17:50 10/15/23 17:50 Laboratory Results 10/15/23 10/15/23 10/15/23 Range/Units 17:50 17:50 17:50 WBC 4.2 L (4.23-9.07) x10^3/uL RBC 4.37 L (4.63-6.08) x10^6/uL Hgb 12.2 L (13.7-17.5) g/dL Hct 36.9 L (40.1-51.0) % MCV 84.4 (79.0-92.2) fL MCH 27.9 (25.7-32.2) pg MCHC 33.1 (32.3-36.5) g/dL RDW 14.3 (11.6-14.4) % Plt Count 176 (163-337) x10^3/uL MPV 9.7 (9.4-12.4) fL Gran % 42.4 (34.0-67.9) % Immature Gran % (Auto) 0.2 (0.001-0.429) % Nucleat RBC Rel Count 0.0 (0.00-0.2) % Eos # (Auto) 0.39 (0.04-0.54) x10^3/uL Immature Gran # (Auto) 0.01 (0.001-0.031) x10^3u/L Absolute Lymphs (auto) 1.56 (1.32-3.57) x10^3/uL Absolute Monos (auto) 0.41 (0.30-0.82) x10^3/uL Absolute Nucleated RBC 0.00 (0.00-0.012) x10^3u/L Lymphocytes % 37.3 (21.8-53.1) % Monocytes % 9.8 (5.3-12.2) % Eosinophils % 9.3 H (0.8-7.0) % Basophils % 1.0 (0.2-1.2) % Absolute Granulocytes 1.77 L (1.78-5.38) x10^3/uL Basophils # 0.04 (0.01-0.08) x10^3/uL PT 12.7 H (9.4-12.5) SECONDS INR 1.18 (0.8-3.0) Sodium 135 (135-145) mmol/L Potassium 3.8 (3.5-5.1) mmol/L Chloride 102 (98-107) mmol/L Carbon Dioxide 23 (22-30) mmol/L Anion Gap 13.4 (5-15) MEQ/L BUN 23 H (9-20) mg/dL Creatinine 1.41 H (0.66-1.25) mg/dL Estimated GFR 55.7 ML/MIN Glucose 101 (74-106) mg/dL Calcium 9.1 (8.4-10.2) mg/dL - Progress Progress: improved Progress Note: 10/15/23 18:47 My medical decision making and the assignment of low to moderate complexity of this patient's medical issue today is based on review of the patient's past medical history, review of the patient's medication list, review the patient drug allergy list, history present illness and physical findings on examination. The workup in this patient includes CBC, BMP, PT/INR. The patient's gumline ulceration to stop bleeding. We provided him with cool water for him to rinse out. Reexamination prior to discharge reveals no further bleeding from the site. We will have him stop his Xarelto for 48 hours before resuming. Counseled pt/family regarding: lab results, diagnosis, need for follow-up Medical Desision Making - Diagnostic Testing Diagnostic test were ordered, analyzed, and reviewed by me: Yes - Risk of complications Low Risk: Low risk of morbidity from additional dx testing or treatment - Departure Departure Disposition: Home Clinical Impression: Gingival ulcer Condition: Stable Critical Care Time: No Referrals: STARR FELICIANO [Primary Care Provider] - Follow up/PCP as directed Additional Instructions: Hold on wearing her dentures until after you speak with your dentist/oral surgeon and those individuals who made your denture. Stop your Xarelto for 48 hours. Continue rinsing out your mouth with cool/cold liquids. In addition, start your diet with clear liquids and slowly advance your diet.
[2023-10-15 18:12] LABS: Absolute Neutrophil Ct (ANC) 1.77 x10^3/uL (1.78-5.38); Basophil (Absolute #) 0.04 x10^3/uL (0.01-0.08); Eosinophil % 9.3 % (0.8-7.0); Eosinophil (Absolute #) 0.39 x10^3/uL (0.04-0.54); Hematocrit 36.9 % (40.1-51.0); Hemoglobin 12.2 g/dL (13.7-17.5); IMMATURE GRAN # 0.01 x10^3u/L (0.001-0.031); IMMATURE GRAN % 0.2 % (0.001-0.429); Lymphocyte (Absolute #) 1.56 x10^3/uL (1.32-3.57); Lymphocytes % 37.3 % (21.8-53.1); Mean Cell Volume 84.4 fL (79.0-92.2); Mean Corpuscular Hemoglobin 27.9 pg (25.7-32.2); Mean Corpuscular Hgb Concent. 33.1 g/dL (32.3-36.5); Mean Platelet Volume 9.7 fL (9.4-12.4); Monocyte (Absolute #) 0.41 x10^3/uL (0.30-0.82); Monocytes % 9.8 % (5.3-12.2); Neutrophil % 42.4 % (34.0-67.9); Platelet Count 176 x10^3/uL (163-337); Red Blood Count 4.37 x10^6/uL (4.63-6.08); Red Cell Distribution Width 14.3 % (11.6-14.4); White Blood Count 4.2 x10^3/uL (4.23-9.07)
[2023-10-15 18:21] LABS: ANION GAP 13.4 MEQ/L (5-15); Calcium 9.1 mg/dL (8.4-10.2); Creatinine 1 1.41 mg/dL (0.66-1.25); EST GLOMERULAR FILTRATION RATE 55.7 ML/MIN; Potassium 3.8 mmol/L (3.5-5.1)
[2023-10-15 18:22] LABS: INR 1.18 (0.8-3.0); PROTIME 12.7 SECONDS (9.4-12.5)
[2023-10-15 18:51] VITALS: O2SAT 98
[2023-10-15 20:06] VITALS: BP 110/67; PULSE 70; RESP 17
== END 2023-10-15 20:00 | disposition home or self-care (01) ==
LOC: ED 17:11
DX: K06.8 Other specified disorders of gingiva and edentulous alveolar ridge (principal); I11.0 Hypertensive heart disease with heart failure; I50.9 Heart failure, unspecified; Z79.01 Long term (current) use of anticoagulants; Z79.899 Other long term (current) drug therapy; Z72.0 Tobacco use
CPT/HCPCS: 36415; 80048; 85025; 85610; 99283

== ENCOUNTER 2023-10-16 08:45 | Emergency (ER) | payer MEDICARE ==
[2023-10-16 08:55] VITALS: TEMP 97.5
[2023-10-16] MEDS: TRANEXAMIC 1,000 MG/100ML-NACL 1,000 MG/100 ML PIGGYBACK IV ONE (09:33)
[2023-10-16 09:50] LABS: Absolute Neutrophil Ct (ANC) 2.31 x10^3/uL (1.78-5.38); BASOPHIL % 0.6 % (0.2-1.2); Basophil (Absolute #) 0.03 x10^3/uL (0.01-0.08); Eosinophil % 8.5 % (0.8-7.0); Eosinophil (Absolute #) 0.43 x10^3/uL (0.04-0.54); Hematocrit 35.4 % (40.1-51.0); Hemoglobin 12.2 g/dL (13.7-17.5); Lymphocyte (Absolute #) 1.81 x10^3/uL (1.32-3.57); Lymphocytes % 35.7 % (21.8-53.1); Mean Cell Volume 81.8 fL (79.0-92.2); Mean Corpuscular Hemoglobin 28.2 pg (25.7-32.2); Mean Corpuscular Hgb Concent. 34.5 g/dL (32.3-36.5); Mean Platelet Volume 9.5 fL (9.4-12.4); Monocyte (Absolute #) 0.49 x10^3/uL (0.30-0.82); Monocytes % 9.7 % (5.3-12.2); Neutrophil % 45.5 % (34.0-67.9); Platelet Count 164 x10^3/uL (163-337); Red Blood Count 4.33 x10^6/uL (4.63-6.08); Red Cell Distribution Width 14.1 % (11.6-14.4); White Blood Count 5.1 x10^3/uL (4.23-9.07)
[2023-10-16 10:03] LABS: ALBUMIN 4.1 g/dL (3.5-5.0); ANION GAP 10.9 MEQ/L (5-15); Calcium 9.6 mg/dL (8.4-10.2); Creatinine 1 1.12 mg/dL (0.66-1.25); EST GLOMERULAR FILTRATION RATE 73.4 ML/MIN; Total Protein 7.3 g/dL (6.3-8.2)
[2023-10-16 10:04] LABS: INR 1.13 (0.8-3.0); PROTIME 12.2 SECONDS (9.4-12.5); PTT 36.2 SECONDS (25.1-36.5)
--- NOTE | 2023-10-16 10:34 | ERPHSYRPT ---
- History of Present Illness Time Seen by Provider: 10/16/23 08:55 Source: patient Exam Limitations: no limitations Patient Subjective Stated Complaint: pt was in the ER last night for upper bleeding gums and it had stopped on discharge but it has started back up again this morning approx 0800 Triage Nursing Assessment: Pt brought to the ER by EMS, vitals wnl, denies pain but states that he doesn't feel good, pulses normal, skin n/w/d, bleeding from upper gums and coughed up blood, no difficulties with breathing Physician History: 63-year-old male presents to our ED for evaluation of gingival hemorrhage. Patient was in our ED for the same. Bleeding was controlled patient was discharged home. Patient is here for the same. On physical exam patient is bleeding from his gingiva. Patient wears dentures. Patient currently on Xarelto per his investment sales assistant. Patient denies trauma no fever. Symptoms are mild to moderate in intensity. No specific worsening or improving factors. Patient voices no other complaints or concerns at this time. Portions of this note were created with voice recognition technology. There may be grammatical, spelling, punctuation or sound alike errors Timing/Duration: today Severity: moderate Modifying Factors: Improves With: nothing Associated Symptoms: denies symptoms Allergies/Adverse Reactions: No Known Drug Allergies Allergy (Verified 10/16/23 08:55) Home Medications: Trazodone HCl 50 mg [Desyrel 50 mg] 1 tab PO HS 04/13/22 [History] Albuterol 2.5 mg/0.5 ml [PROVENTIL Solution 2.5 MG/0.5 ML] 0.5 ml IH Q2H/PRN PRN 11/21/22 [History] Albuterol 2.5 mg/3 ml Neb [Proventil 2.5 mg/3 ml Neb] 3 ml IH Q6HPRN PRN 11/21/22 [History] Albuterol Sulfate [Proair Respiclick] 2 puff IH Q6HPRN PRN 11/21/22 [History] Cholecalciferol (Vitamin D3) [Vitamin D3] 50 mcg PO DAILY 11/21/22 [History] Fluticasone Propionate [Flonase NASAL] 1 puff NS DAILY 11/21/22 [History] Folic Acid 1 mg PO DAILY 11/21/22 [History] Gabapentin 300 mg PO HS 11/21/22 [History] Lacosamide [Vimpat] 50 mg PO BID 11/21/22 [History] Levothyroxine Sodium 75 mcg PO DAILY 11/21/22 [History] Sacubitril/Valsartan [Entresto 49 mg-51 mg Tablet] 1 tab PO DAILY 07/10/23 [History] Tamsulosin HCl 0.4 mg [Flomax 0.4 MG] 0.4 mg PO UD 07/10/23 [History] Hx Tetanus, Diphtheria Vaccination/Date Given: Yes Hx Influenza Vaccination/Date Given: No Hx Pneumococcal Vaccination/Date Given: No Travel Risk - International Travel Have you traveled outside of the country in past 3 weeks: No - Emerging Infectious Disease Are you exhibiting symptoms associated with any current EIDs: No - Review of Systems Constitutional: No Symptoms, No Fever, No Chills Eyes: No Symptoms Ears, Nose, & Throat: No Symptoms Respiratory: No Symptoms, No Cough, No Dyspnea Cardiac: No Symptoms, No Chest Pain, No Edema, No Syncope Abdominal/Gastrointestinal: No Symptoms, No Abdominal Pain, No Nausea, No Vo miting, No Diarrhea Genitourinary Symptoms: No Symptoms, No Dysuria Musculoskeletal: No Symptoms, No Back Pain, No Neck Pain Skin: No Symptoms, No Rash Neurological: No Symptoms, No Dizziness, No Focal Weakness, No Sensory Changes Psychological: No Symptoms Endocrine: No Symptoms Hematologic/Lymphatic: No Symptoms Immunological/Allergic: No Symptoms All Other Systems: Reviewed and Negative - Past Medical History Pertinent Past Medical History: Yes Neurological History: No Pertinent History, Other ENT History: No Pertinent History Cardiac History: Arrhythmia, Hypertension, Other Respiratory History: COPD, Pneumonia Endocrine Medical History: Other Musculoskeletal History: Arthritis, Degenerative Disk Disease GI Medical History: No Pertinent History, Diverticulosis, Hepatitis, Hernia History: Bladder Cancer, Kidney Cancer, Other Psycho-Social History: Anxiety Male Reproductive Disorders: Other Other Medical History: REPORTS GETS HEADACHES FREQUENTLY ALMOST EVERY DAY AND TAKES EXCEDRIN WHICH HELPS. PACEMAKER PLACED 02/28 DUE BRADYCARDIA. LEFT PARTIAL NEPHRECTOMY 08/2021 DUE TO CANCER. CURRENTLY TAKING KEYTRUDA INFUSIONS EVERY 6 WEEKS. - Past Surgical History Past Surgical History: Yes Neuro Surgical History: No Pertinent History Cardiac: Pacemaker Respiratory: No Pertinent History Gastrointestinal: Cholecystectomy, Hernia Repair Genitourinary: No Pertinent History Musculoskeletal: Other Male Surgical History: No Pertinent History Other Surgical History: shoulder surgery Significant Family History: no pertinent family hx - Social History Smoking Status: Current every day smoker How long have you smoked: 40 years Exposure to second hand smoke: Yes Drug Use: marijuana Patient Lives Alone: No - Social Determinants of Health Will the patient participate in the screening: Unable to obtain - Nursing Vital Signs Nursing Vital Signs: Initial Vital Signs Temperature 97.5 F 10/16/23 08:47 Pulse Rate 76 10/16/23 08:47 Blood Pressure 104/64 10/16/23 08:47 O2 Sat by Pulse Oximetry 96 10/16/23 08:47 Pain Scale Pain Intensity 0 - Physical Exam General Appearance: no apparent distress, alert Eye Exam: PERRL/EOMI, eyes nml inspection Ears, Nose, Throat Exam: normal ENT inspection, TMs normal, pharynx normal, moist mucous membranes, other (Blood oozing from his upper gingiva. The area is somewhat tender. No signs of trauma) Neck Exam: normal inspection, non-tender, supple, full range of motion Respiratory Exam: normal breath sounds, lungs clear, airway intact, No respiratory distress Cardiovascular Exam: regular rate/rhythm, normal heart sounds, normal peripheral pulses Gastrointestinal/Abdomen Exam: soft, normal bowel sounds, No tenderness, No mass Back Exam: normal inspection, normal range of motion, No CVA tenderness, No vertebral tenderness Extremity Exam: normal inspection, normal range of motion, pelvis stable Neurologic Exam: alert, oriented x 3, cooperative, normal mood/affect, nml station & gait, sensation nml, No motor deficits Skin Exam: normal color, warm, dry, No rash Lymphatic Exam: No adenopathy SpO2 Interpretation: normal SpO2: 97 O2 Delivery: Room Air - Course Nursing assessment & vital signs reviewed: Yes Ordered Tests: Active Orders 24 hr Category Date Time Status Gambling Cashier STAT Care 10/16/23 09:21 Active IV Insertion STAT Care 10/16/23 09:19 Active Pulse Oximetry (ED) STAT Care 10/16/23 09:19 Active CBC W DIFF Stat Lab 10/16/23 09:46 Completed CMP Stat Lab 10/16/23 09:46 Completed PROTIME WITH INR Stat Lab 10/16/23 09:46 Completed PTT Stat Lab 10/16/23 09:46 Completed Medication Summary Discontinued Medications Generic Name Dose Route Start Last Admin Trade Name Shelley PRN Reason Stop Dose Admin TRANEXAMIC ACID IN NACL,ISO-OS 1,000 mg in 100 mls @ 600 mls/hr 10/16/23 09:29 10/16/23 09:55 Tranexamic 1,000 Mg/100ml-Nacl IV 10/16/23 09:38 Infused ONCE ONE Infusion Lab/Rad Data: Laboratory Result Diagrams 10/16/23 09:46 10/16/23 09:46 Laboratory Results 10/16/23 10/16/23 10/16/23 Range/Units 09:46 09:46 09:46 WBC 5.1 (4.23-9.07) x10^3/uL RBC 4.33 L (4.63-6.08) x10^6/uL Hgb 12.2 L (13.7-17.5) g/dL Hct 35.4 L (40.1-51.0) % MCV 81.8 (79.0-92.2) fL MCH 28.2 (25.7-32.2) pg MCHC 34.5 (32.3-36.5) g/dL RDW 14.1 (11.6-14.4) % Plt Count 164 (163-337) x10^3/uL MPV 9.5 (9.4-12.4) fL Gran % 45.5 (34.0-67.9) % Immature Gran % (Auto) 0.0 L (0.001-0.429) % Nucleat RBC Rel Count 0.0 (0.00-0.2) % Eos # (Auto) 0.43 (0.04-0.54) x10^3/uL Immature Gran # (Auto) 0.00 L (0.001-0.031) x10^3u/L Absolute Lymphs (auto) 1.81 (1.32-3.57) x10^3/uL Absolute Monos (auto) 0.49 (0.30-0.82) x10^3/uL Absolute Nucleated RBC 0.00 (0.00-0.012) x10^3u/L Lymphocytes % 35.7 (21.8-53.1) % Monocytes % 9.7 (5.3-12.2) % Eosinophils % 8.5 H (0.8-7.0) % Basophils % 0.6 (0.2-1.2) % Absolute Granulocytes 2.31 (1.78-5.38) x10^3/uL Basophils # 0.03 (0.01-0.08) x10^3/uL PT 12.2 (9.4-12.5) SECONDS INR 1.13 (0.8-3.0) APTT 36.2 (25.1-36.5) SECONDS Sodium 135 (135-145) mmol/L Potassium 4.0 (3.5-5.1) mmol/L Chloride 103 (98-107) mmol/L Carbon Dioxide 25 (22-30) mmol/L Anion Gap 10.9 (5-15) MEQ/L BUN 22 H (9-20) mg/dL Creatinine 1.12 (0.66-1.25) mg/dL Estimated GFR 73.4 ML/MIN Glucose 88 (74-106) mg/dL Calcium 9.6 (8.4-10.2) mg/dL Total Bilirubin 1.00 (0.2-1.3) mg/dL AST 36 (17-59) U/L ALT 16 (0-50) U/L Alkaline Phosphatase 92 (38-126) U/L Serum Total Protein 7.3 (6.3-8.2) g/dL Albumin 4.1 (3.5-5.0) g/dL - Progress Progress: improved Progress Note: 10/16/23 10:32 Spoke to who advised against reversing anticoagulation. He advised achieving local control if unsuccessful patient to be transferred to [facility]. Discussed at 10:30 AM 63-year-old male presents to our ED for gingival bleeding. Patient on Xarelto. Patient held his dose of Xarelto this morning. Patient treated with nebulized TXA. Bleeding resolved. Patient observed for several hours. No recurrence. at bedside. We instructed her on protecting the gingiva. Patient not to wear his dentures. Patient to avoid any mechanical and chemical stress to the gingiva. Clear liquids through a straw. Patient can resume his Xarelto tomor row. Patient states he is ready for discharge. Vitals are stable at bedside they voiced no other complaints or concerns at this time. Laboratory workup essentially nonremarkable Portions of this note were created with voice recognition technology. There may be grammatical, spelling, punctuation or sound alike errors Complexity problem addressed is moderate acute complicated. No critical care time. Complex of data reviewed and analyzed is extensive. Test ordered test reviewed results analyzed and correlated clinically with history and physical examination. Management discussed with patient's investment sales assistant to advise against reversal of his anticoagulation. Risk of complication and or risk of morbidity/mortality patient management is low. Vital stable. Time spent to discharge patient approximately 15 minutes. Plan of care established for shared decision making. No social determinants of health present impede follow-up. Portions of this note were created with voice recognition technology. There may be grammatical, spelling, punctuation or sound alike errors 10/16/23 12:37 Counseled pt/family regarding: lab results, diagnosis, need for follow-up, rad results - Departure Departure Disposition: Home Clinical Impression: Gingival hemorrhage Condition: Stable Critical Care Time: No Referrals: STARR FELICIANO [Primary Care Provider] - Follow up/PCP as directed Additional Instructions: Discharge/Care Plan MARY CARTER KENDALL was seen on 10/16/23 in the Emergency Room. The patient was counseled regarding Diagnosis,Lab results, Imaging studies, need for follow up and when to return to the Emergency Room. Prescriptions given: Discharge Note I have spoken with the patient and/or caregivers. I have explained the patient's condition, diagnosis and treatment plan based on the information available to me at this time. I have answered the patient's and/or caregiver's questions and addressed any concerns. The patient and/or caregivers have as good understanding of the patient's diagnosis, condition and treatment plan as can be expected at t his point. The vital signs have been stable. The patient's condition is stable and appropriate for discharge from the emergency department. The patient will pursue further outpatient evaluation with the primary care physician or other designated or consulting physician as outlined in the discharge instructions. The patient and/or caregivers are agreeable to this plan of care and follow-up instructions have been explained in detail. The patient and/or caregivers have received these instruction. The patient/and or caregivers are aware that any significant change in condition or worsening of symptoms should prompt an immediate return to this or the closest emergency department or call 911.
[2023-10-16 12:33] VITALS: BP 108/64; PULSE 74; RESP 14
[2023-10-16 12:35] VITALS: O2SAT 97
== END 2023-10-16 12:40 | disposition home or self-care (01) ==
LOC: ED 08:45
DX: K06.8 Other specified disorders of gingiva and edentulous alveolar ridge (principal); I10 Essential (primary) hypertension; Z79.01 Long term (current) use of anticoagulants; Z79.899 Other long term (current) drug therapy; Z72.0 Tobacco use
CPT/HCPCS: 36000; 36415; 80053; 85025; 85610; 85730; 93041; 94760; 96365; 99284

== ENCOUNTER 2023-11-08 22:35 | Emergency (ER) | payer MEDICARE ==
--- NOTE | 2023-11-08 22:39 | ERPHSYRPT ---
- History of Present Illness Time Seen by Provider: 11/08/23 22:39 Source: patient, family Exam Limitations: no limitations Physician History: This is a 63-year-old white male patient who returns to our emergency room department with recurrent upper gumline oral cavity gingival bleeding. This is his third visit to our emergency department in less than 1 month. Patient states that the bleeding ulceration started to bleed approximately 2 PM today. Patient has dentures which irritate this area. He recently was taken off of his Xarelto but still takes a baby aspirin. Patient continues to smoke cigarettes daily. It is unclear whether the patient has been evaluated by brush clearer surveying and/or the facility where his dentures were placed. On 10/16/2023, the emergency room department physician on that shift was advised by the patient's strip roller, Dr. Wray, against reversing the anticoagulation therapy. During the 10/16/2023 visit, there was nebulized TXA applied to the site. The patient states this did help temporarily. 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 The patient's spouse provided independent, additional history as the patient continues to hold pressure in the area of oozing. She states that this area loses often but this afternoon the bruising became more brisk and even with pressure it did not stop bleeding. She also states that he intermittently uses his dentures because it appears to them that it does not matter if he is using his dentures or not there is oozing from that site. They have not seen an brush clearer surveying or return to the manufacture of his dentures. Timing/Duration: gradual onset, this afternoon Prearrival Treatment: no prearrival treatment Modifying Factors: Improves With: nothing Associated Symptoms: denies symptoms Allergies/Adverse Reactions: No Known Drug Allergies Allergy (Verified 11/08/23 22:42) Home Medications: Trazodone HCl 50 mg [Desyrel 50 mg] 1 tab PO HS PRN 04/13/22 [History] Albuterol 2.5 mg/0.5 ml [PROVENTIL Solution 2.5 MG/0.5 ML] 0.5 ml IH Q2H/PRN PRN 11/21/22 [History] Albuterol 2.5 mg/3 ml Neb [Proventil 2.5 mg/3 ml Neb] 3 ml IH Q6HPRN PRN 11/21/22 [History] Albuterol Sulfate [Proair Respiclick] 2 puff IH Q6HPRN PRN 11/21/22 [History] Cholecalciferol (Vitamin D3) [Vitamin D3] 125 mcg PO DAILY 11/21/22 [History] Fluticasone Propionate [Flonase NASAL] 1 puff NS DAILY 11/21/22 [History] Folic Acid 1 mg PO DAILY 11/21/22 [History] Gabapentin 300 mg PO TID 11/21/22 [History] Levothyroxine Sodium 125 mcg PO DAILY 11/21/22 [History] Tamsulosin HCl 0.4 mg [Flomax 0.4 MG] 0.4 mg PO UD 07/10/23 [History] Aspirin [[place]] 81 mg PO DAILY 11/08/23 [History] Ferrous Sulfate, Dried [Iron] 65 mg PO BID 11/08/23 [History] Midodrine HCl 10 mg PO TID 11/08/23 [History] Hx Tetanus, Diphtheria Vaccination/Date Given: Yes Hx Influenza Vaccination/Date Given: No Hx Pneumococcal Vaccination/Date Given: No Travel Risk - International Travel Have you traveled outside of the country in past 3 weeks: No - Emerging Infectious Disease Are you exhibiting symptoms associated with any current EIDs: No - Review of Systems Constitutional: No Symptoms Eyes: No Symptoms Ears, Nose, & Throat: Other (Ulceration roof of mouth with intermittent bleeding chronically) Respiratory: No Symptoms Cardiac: No Symptoms Abdominal/Gastrointestinal: No Symptoms Genitourinary Symptoms: No Symptoms Musculoskeletal: No Symptoms Skin: No Symptoms Neurological: No Symptoms Psychological: No Symptoms Endocrine: No Symptoms Hematologic/Lymphatic: No Symptoms Immunological/Allergic: No Symptoms All Other Systems: Reviewed and Negative - Past Medical History Pertinent Past Medical History: Yes Neurological History: No Pertinent History, Other ENT History: No Pertinent History Cardiac History: Arrhythmia, Hypertension, Other Respiratory History: COPD, Pneumonia Endocrine Medical History: Other Musculoskeletal History: Arthritis, Degenerative Disk Disease GI Medical History: No Pertinent History, Diverticulosis, Hepatitis, Hernia History: Bladder Cancer, Kidney Cancer, Other Psycho-Social History: Anxiety Male Reproductive Disorders: Other Other Medical History: REPORTS GETS HEADACHES FREQUENTLY ALMOST EVERY DAY AND TAKES EXCEDRIN WHICH HELPS. PACEMAKER PLACED 02/28 DUE BRADYCARDIA. LEFT PARTIAL NEPHRECTOMY 08/2021 DUE TO CANCER. CURRENTLY TAKING KEYTRUDA INFUSIONS EVERY 6 WEEKS. - Past Surgical History Past Surgical History: Yes Neuro Surgical History: No Pertinent History Cardiac: Pacemaker Respiratory: No Pertinent History Gastrointestinal: Cholecystectomy, Hernia Repair Genitourinary: No Pertinent History Musculoskeletal: Other Male Surgical History: No Pertinent History Other Surgical History: shoulder surgery Significant Family History: no pertinent family hx - Social History Smoking Status: Current every day smoker How long have you smoked: 40 years Exposure to second hand smoke: Yes Drug Use: marijuana Patient Lives Alone: No - Social Determinants of Health Will the patient participate in the screening: Unable to obtain - Nursing Vital Signs Nursing Vital Signs: Initial Vital Signs Temperature 97.0 F 11/08/23 22:42 Pulse Rate 86 11/08/23 22:42 Respiratory Rate 18 11/08/23 22:42 Blood Pressure 100/70 11/08/23 22:42 O2 Sat by Pulse Oximetry 96 11/08/23 22:42 Pain Scale Pain Intensity 2 - Physical Exam General Appearance: no apparent distress, alert, anxiety Eye Exam: bilateral eye: normal inspection, PERRL, EOMI Ear Exam: bilateral ear: auricle normal Nasal Exam: normal inspection Throat Exam: moist mucus membranes (With upper palate gingival ulceration with mild oozing present.), No dental tenderness Neck Exam: normal inspection, non-tender, supple, full range of motion Cardiovascular/Respiratory Exam: chest non-tender, no respiratory distress Abdominal Exam: non-tender Neurologic Exam: alert, oriented x 3, cooperative, work checker II-XII nml as tested, nml cerebellar function, nml station & gait, sensation nml Skin Exam: normal color, warm, dry SpO2 Interpretation: normal O2 Delivery: Room Air - Course Nursing assessment & vital signs reviewed: Yes Ordered Tests: Active Orders 24 hr Category Date Time Status BMP Stat Lab 11/08/23 23:15 Completed CBC W DIFF Stat Lab 11/08/23 23:15 Completed PROTIME WITH INR Stat Lab 11/08/23 23:15 Completed PTT Stat Lab 11/08/23 23:15 Completed Respiratory Therapy Assessment DAILY RT 11/09/23 00:03 Active Medication Summary Discontinued Medications Generic Name Dose Route Start Last Admin Trade Name Shelley PRN Reason Stop Dose Admin TRANEXAMIC ACID IN NACL,ISO-OS 1,000 mg in 100 mls @ 600 mls/hr 11/08/23 23:58 11/09/23 00:02 Tranexamic 1,000 Mg/100ml-Nacl IV 11/09/23 00:07 600 mls/hr ONCE ONE 600 mls/hr Administration Tranexamic Acid Confirm 11/08/23 23:16 Tranexamic Acid 1000 Mg/10 Ml Vial/Amp Administered 11/08/23 23:17 Dose 1,000 mg .ROUTE .[employer]Badges-ACLED[employer] Bank ONE Lab/Rad Data: Laboratory Result Diagrams 11/08/23 23:15 11/08/23 23:15 Laboratory Results 11/08/23 11/08/23 11/08/23 Range/Units 23:15 23:15 23:15 WBC 6.4 (4.23-9.07) x10^3/uL RBC 3.73 L (4.63-6.08) x10^6/uL Hgb 10.5 L (13.7-17.5) g/dL Hct 30.6 L (40.1-51.0) % MCV 82.0 (79.0-92.2) fL MCH 28.2 (25.7-32.2) pg MCHC 34.3 (32.3-36.5) g/dL RDW 13.5 (11.6-14.4) % Plt Count 188 (163-337) x10^3/uL MPV 9.2 L (9.4-12.4) fL Gran % 48.8 (34.0-67.9) % Immature Gran % (Auto) 0.2 (0.001-0.429) % Nucleat RBC Rel Count 0.0 (0.00-0.2) % Eos # (Auto) 0.64 H (0.04-0.54) x10^3/uL Immature Gran # (Auto) 0.01 (0.001-0.031) x10^3u/L Absolute Lymphs (auto) 1.94 (1.32-3.57) x10^3/uL Absolute Monos (auto) 0.63 (0.30-0.82) x10^3/uL Absolute Nucleated RBC 0.00 (0.00-0.012) x10^3u/L Lymphocytes % 30.5 (21.8-53.1) % Monocytes % 9.9 (5.3-12.2) % Eosinophils % 10.0 H (0.8-7.0) % Basophils % 0.6 (0.2-1.2) % Absolute Granulocytes 3.11 (1.78-5.38) x10^3/uL Basophils # 0.04 (0.01-0.08) x10^3/uL PT 11.7 (9.4-12.5) SECONDS INR 1.08 (0.8-3.0) APTT 34.2 (25.1-36.5) SECONDS Sodium 128 L (135-145) mmol/L Potassium 4.6 (3.5-5.1) mmol/L Chloride 97 L (98-107) mmol/L Carbon Dioxide 23 (22-30) mmol/L Anion Gap 12.9 (5-15) MEQ/L BUN 25 H (9-20) mg/dL Creatinine 1.22 (0.66-1.25) mg/dL Estimated GFR 66.2 ML/MIN Glucose 84 (74-106) mg/dL Calcium 9.2 (8.4-10.2) mg/dL - Progress Progress: improved, re-examined Progress Note: 11/08/23 23:42 My medical decision making and the assignment of low to moderate complexity is based on review of the patient's past medical history, review of the patient's medication list, review of patient drug allergy list, history present illness and physical findings on examination. The workup in this patient includes a CBC, BMP, PT/INR/PTT. Reassessment of the patient shows this ulcerated area oozing that is slowing down. 11/08/23 23:46 I interpreted the patient's laboratory data results. The hemoglobin has dropped from 12.2 approximate 3 to 4 weeks ago to 10.5. The coags are within normal limits. The patient's sodium level is 128. The value is typically around 131- 133. 11/08/23 23:54 Spoke with our pharmacist Khang and he reviewed the literature regarding tranexamic acid dosing for dental procedure. He provided me with 2 options. The first is to soak a gauze with the vial contents. And the second is the use of the nebulizer and use 500 mg which is 5 mL. What we are planning to do is to provide the patient with a nebulizer of 500 mg followed by placement of soaked gauze in the area of the slow ooze in the patient's oral cavity. 11/09/23 00:23 After the nebulized 500 mg this/5 mL solution we soaked gauze with 500 mg more (5 mL of solution). We placed this directly on the gingival ulceration/gingival cut region. We held this in place for several minutes. We removed and there was no evidence of any active bleeding or oozing. Excellent clot formation was visible. Counseled pt/family regarding: lab results, diagnosis, need for follow-up Medical Desision Making - Independent Historian Additional History obtained from: Spouse - Diagnostic Testing Diagnostic test were ordered, analyzed, and reviewed by me: Yes - Risk of complications Low Risk: Low risk of morbidity from additional dx testing or treatment - Departure Departure Disposition: Home Clinical Impression: Gingival bleeding Condition: Stable Critical Care Time: No Referrals: STARR FELICIANO [Primary Care Provider] - Follow up/PCP as directed Additional Instructions: Avoid use of dentures. Drink cool liquids and soft diet. Call your primary care provider and and brush clearer surveying after 830 this morning, 11/09/2023, to make arrangements for follow-up appointment to be seen in the next 3 days.
[2023-11-08 22:53] VITALS: BP 100/70; RESP 18; TEMP 97; O2SAT 96
[2023-11-08] MEDS ORDERED: TRANEXAMIC ACID 1000 MG/10 ML ONE (23:16)
[2023-11-08 23:22] LABS: Absolute Neutrophil Ct (ANC) 3.11 x10^3/uL (1.78-5.38); BASOPHIL % 0.6 % (0.2-1.2); Basophil (Absolute #) 0.04 x10^3/uL (0.01-0.08); Eosinophil (Absolute #) 0.64 x10^3/uL (0.04-0.54); Hematocrit 30.6 % (40.1-51.0); Hemoglobin 10.5 g/dL (13.7-17.5); IMMATURE GRAN # 0.01 x10^3u/L (0.001-0.031); IMMATURE GRAN % 0.2 % (0.001-0.429); Lymphocyte (Absolute #) 1.94 x10^3/uL (1.32-3.57); Lymphocytes % 30.5 % (21.8-53.1); Mean Corpuscular Hemoglobin 28.2 pg (25.7-32.2); Mean Corpuscular Hgb Concent. 34.3 g/dL (32.3-36.5); Mean Platelet Volume 9.2 fL (9.4-12.4); Monocyte (Absolute #) 0.63 x10^3/uL (0.30-0.82); Monocytes % 9.9 % (5.3-12.2); Neutrophil % 48.8 % (34.0-67.9); Platelet Count 188 x10^3/uL (163-337); Red Blood Count 3.73 x10^6/uL (4.63-6.08); Red Cell Distribution Width 13.5 % (11.6-14.4); White Blood Count 6.4 x10^3/uL (4.23-9.07)
[2023-11-08 23:36] LABS: ANION GAP 12.9 MEQ/L (5-15); Calcium 9.2 mg/dL (8.4-10.2); Creatinine 1 1.22 mg/dL (0.66-1.25); EST GLOMERULAR FILTRATION RATE 66.2 ML/MIN; Potassium 4.6 mmol/L (3.5-5.1)
[2023-11-08 23:38] LABS: INR 1.08 (0.8-3.0); PROTIME 11.7 SECONDS (9.4-12.5); PTT 34.2 SECONDS (25.1-36.5)
[2023-11-09] MEDS: TRANEXAMIC 1,000 MG/100ML-NACL 1,000 MG/100 ML PIGGYBACK IV ONE (00:02)
[2023-11-09 00:05] VITALS: PULSE 71
== END 2023-11-09 00:28 | disposition home or self-care (01) ==
LOC: ED 22:35
DX: K06.8 Other specified disorders of gingiva and edentulous alveolar ridge (principal); I11.0 Hypertensive heart disease with heart failure; I50.9 Heart failure, unspecified; Z79.899 Other long term (current) drug therapy; Z72.0 Tobacco use
CPT/HCPCS: 36415; 80048; 85025; 85610; 85730; 94640; 99283